=== PATIENT | male | born 1945 | race Caucasian/White ===

== ENCOUNTER 2019-09-18 11:07 | Outpatient (CLI) | payer MEDICARE, OTHER, SELFPAY ==
--- NOTE | 2019-09-18 | US_ITS ---
WS: [id number] ULTRASOUND ABDOMEN LIMITED CLINICAL INFORMATION: HISTORY OF ALCOHOL ABUSE COMPARISON: None. FINDINGS: Liver Size: Enlarged Craniocaudal length: 16.2 x 14.6 cm. Echogenicity: Normal. Surface nodularity: None. Mass (size and location): None. Bile ducts Intrahepatic ducts: Normal. Common bile duct diameter: 2.1 mm Gallbladder Normal. Gallstones: None. Gallbladder sludge: None. Gallbladder wall thickening: None. Pericholecystic fluid: None. Sonographic Garcia sign: Absent. Pancreas Normal as visualized. Right kidney: Normal. Hydronephrosis: None. Size: 11.1 cm x 4.9 cm x 5.3 cm. Abdominal aorta and IVC Visualized portions are normal. Ascites: None. US/US liver 46090 IMPRESSION: 1. Mild hepatomegaly. 2. Gallbladder is normal. Normal common bile duct. 3. No hydronephrosis in right kidney.
== END 2019-09-18 11:08 | disposition home or self-care (01) ==
LOC: RADOUTREAD 13:23
PROVIDERS: PCP Internal Medicine; Visit Provider Internal Medicine
DX: F10.11 Alcohol abuse, in remission (principal); R16.0 Hepatomegaly, not elsewhere classified
CPT/HCPCS: 76705

== ENCOUNTER 2019-09-25 08:45 | Outpatient (CLI) | payer MEDICARE, OTHER, SELFPAY ==
--- NOTE | 2019-09-25 09:06 | CT_ITS ---
WS: [id number] CT CHEST WITHOUT INTRAVENOUS CONTRAST HISTORY: PLEURAL THICKENING TECHNIQUE: Contiguous 5 mm axial imaging performed on the thorax. Coronal and sagittal reformats are submitted. All CT scans at [facility] use at least one of these dose optimization techniq ues: automated exposure control; mA and/or kV adjustment per patient size (includes targeted exams wh ere dose is matched to clinical indication); or iterative reconstruction. CONTRAST: None DLP: 838.95 mGycm COMPARISON: 09/14/2019 Lungs, pleura and central airway: Mild hyperinflation and chronic emphysema. 5 mm noncalcified nodule RIGHT upper lobe closely associated with the minor fissure. Pleural plaques are noted in the mid and lower LEFT thorax. In the mid thorax there is a lateral pleural plaque. Additional pleural plaque at the LEFT lung base. Heart and pericardium: Mild enlargement the cardiac chambers. No pericardial effusion. Mediastinum and aubrey: Small benign-appearing lymph nodes. Vessels: Mild atherosclerosis aorta with no aneurysm. Pulmonary artery size is slightly enlarged. Sca ttered coronary artery atherosclerotic plaques. Chest wall and lower neck: Low-attenuation nodule in the inferior RIGHT thyroid measures 2.4 cm. This nodule recently evaluated on 09/21/2019. Upper abdomen: Nonobstructing calcification mid RIGHT kidney. Moderate atherosclerosis suprarenal aor ta. Osseous structures: Thoracic spondylosis. CT/CT chest wo con [id number] IMPRESSION: 1. LEFT pleural plaques likely on the basis of prior asbestosis exposure. Alte rnatively prior chest trauma or hemothorax. 2. Noncalcified 5 mm nodule RIGHT upper lobe. Chest CT in 12 months recommende d. 3. Mild chronic emphysema and partially calcified thoracic aorta. 4. RIGHT thyroid nodule was recently described on 09/21/2019.
== END 2019-09-25 08:46 | disposition home or self-care (01) ==
LOC: RADWPI 08:50
PROVIDERS: PCP Internal Medicine; Visit Provider Internal Medicine
DX: J92.9 Pleural plaque without asbestos (principal); E04.1 Nontoxic single thyroid nodule; J43.9 Emphysema, unspecified; R91.1 Solitary pulmonary nodule
CPT/HCPCS: 71250

== ENCOUNTER 2020-03-06 09:30 | Outpatient (CLI) | payer MEDICARE, OTHER, SELFPAY ==
[2020-03-06 10:18] LABS: Basophils % 0.5 %; Eosinophils % 0.8 %; Hematocrit 33.1 % (42.0-52.0); Hemoglobin 10.9 g/dL (11.7-16.6); Lymphocytes # 1.8 10^3/uL (0.8-4.8); Lymphocytes % 46.1 %; Mean Corpuscular HGB Conc 32.9 g/dL (30.0-36.0); Mean Corpuscular Hemoglobin 34.6 pg (28.0-34.0); Mean Corpuscular Volume 105.1 fL (80-94); Monocytes # 0.4 10^3/uL (0.2-0.9); Monocytes % 10.6 %; Neutrophils # 1.66 10^3/uL (1.8-7.7); Neutrophils % 41.7 %; Nucleated Red Blood Cells % 0 %; Platelet Count 81 10^3/cmm (130-400); Red Blood Count 3.15 10^6/uL (4.1-5.3); Red Cell Distribution Width 14.1 % (12.1-15.1)
--- NOTE | 2020-03-06 12:22 | USCV_ITS ---
Erich Case Age: 74 Gender: M : 1945 Exam Date: 03/06/2020 12:51 Ordering Phys: Fransico Shankar MD Technologist: Nahun García [place] [facility] [place]: pain left leg. patient states doc wanted exam to see if patient could be off of his blood thinner meds PROCEDURES: Venous duplex imaging was performed in only the left lower extremity. The following venous structures were evaluated: common femoral vein, profunda vein, proximal portion of the greater saphenous vein, superficial femoral vein, and the popliteal vein. In addition, the posterior tibial and peroneal trunk were evaluated. Serial compression, augmentation maneuvers, and spectral Doppler flow evaluation were performed. FINDINGS: Patient had dvt in the left lower extremity in 2015. Today there appears to be non occluisve clot extending from the left common femoral to the peroneal veins. CONCLUSIONS Age indeterminate non occlusive DVT left lower extremity. Dr. Emily Sofia DO (Electronically Signed) Final Date: 06 March 2020 13:22 S
--- NOTE | 2020-03-06 13:36 | ONC CON_ITS ---
Dr. Shankar New Patient Note Patient: Erich Case Unit #: [id number]: 1945 Dicatated By: Fransico Shankar M.D.Date of Visit: Mar 06, 2020 Onc MED New Patient/Consult Referring Physician: Dr. Nithin Alejandro M.D. History of Present Illness: Mr. Erich Case, is a 74-year-old gentleman with history of right leg DVT diagnosed in 1997, as per patient he was treated with heparin for 5 days as inpatient followed by probably short course of Coumadin for few months. 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 Patient did fine until in 2016 when he felt left groin discomfort/pain and went to see his PMD, eventually left leg venous Doppler study was done which confirmed DVT as per patient from his groin to left knee and he was started on Eliquis 5 mg twice a day for a few weeks and then dose was reduced to 2.5 mg p.o. twice daily, and he is on currently. As per patient last week he had a routine lab work-up done and he was informed about anemia and his iron studies were normal but B12 was on the low side of normal so he was started on oral B12 supplement by his PMD. Patient denies any history of alcohol use for the last 30 years, before that he used to consume significant amount of alcohol. Denies any history of stomach surgery denies any peripheral numbness, denies any abdominal pain or fullness, denies any skin rash or itching, denies any jaundice, denies any melena or hematochezia denies any hemoptysis or hematemesis. Denies any started on new medication, Denies any night sweats, denies any peripheral lymphadenopathy or abdominal fullness, denies any recurrent fever Patient is complaining of about 30 pound weight loss in the last 6 months and also complaining of right thyroid nodule, his lab work-up done by PMD confirmed hyperthyroidism and now he is scheduled to see Dr. Coffman, ENT on coming Wednesday. Past Medical History: Mr. Thompson medical history consists of bph, history of dvt left lower extremity, hyperthyroidism, and thyroid nodule. Past Surgical History: Mr. Thompson surgical/procedural history consists of left hand surgery, sinus surgery, and vasectomy. Medications: Advair Diskus 2 Puff(s) (of 250-50 mcg/dose) Aerosol Powder, Breath Activated Inhalation daily, Eliquis 2 Tablet (of 2.5 mg) Oral daily, Tamsulosin HCl 1 Capsule (of 0.4 mg) Oral daily Allergies: Vicodin Social History: Mr. Case is single. He is a daily smoker who has smoked 0.5 packs/day for 3 years. He has no history of drinking. Family History: There is no documented family history. Review Of Symptoms: Constitutional - Appetite is good and weight is flucuating. No fever, night sweats, or hot flashes. Energy level is poor, ENMT - No sinus congestion/drainage. No mouth sores. No sore throat or difficulty swallowing, Hematologic/Lymphatic - Positive for easy bruising and bleeding, Respiratory - Positive for shortness of breath and cough. No pleuritic pain or hemoptysis, Cardiovascular - No angina pain. No palpitations, Gastrointestinal - No nausea or vomiting. No heartburn or acid reflux. No diarrhea or constipation. No blood in the stool or black stools, Genitourinary (M) - No dysuria or hematuria. No urinary frequency. No urgency or incontinence, Musculoskeletal - No joint or bone pain, Neurologic - No headache. Positive for dizziness. No numbness or tingling. No other focal neurologic symptoms, Psychiatric - Positive for anxiety. Vital Signs: Performed on Mar 06, 2020 10:56: 0, 22.03, 1.95 sq.m, 72 in, 99 %, 108 /min (HIGH), 16 /min, 100/60 mm(hg), 97.9 F (LOW), and 162.4 lbs (HIGH). Performance Status: 0 - Fully active, able to carry on all predisease activities without restrictions. (ECOG) Physical Examination: ENMT - No mouth sores, no thrush, no jaundice, No cervical, Axillary lymphadenopathy, Respiratory - Lungs are clear to auscultation, Cardiovascular - Regular rate and rhythm of heart, Abdomen - Soft, bowel sounds present, Extremities - No visible edema or rash, Old healing ecchymosis involving upper extremities. Lab/Imaging: Most recent lab results are not available for this patient. Impression: Macrocytic, hyperchromic anemia probably multifactorial including B12 deficiency, considering his age underlying myelodysplasia cannot be ruled out, lab work-up done in the PMDs office, on February 21, 2020 showed white blood count 3.2 hemoglobin 9.6 hematocrit 28.2 platelets 168,000 Iron 116, iron saturation 52, TIBC 222, ferritin 951, B12 286, SPEP no restricted protein seen TSH less than 0.06 , T4 2.7 History of BPH, on Flomax,PSA 6.1 Hyperthyroidism Right thyroid nodule, being evaluated by ENT Plan: Discussed with patient regarding his labs showed white blood count 4 hemoglobin 10.9 g compared to 9.6 g on February 20, 2019, since then patient is on oral B12 supplement., Hematocrit 33.1, MCV 105.1, platelet count 81,000 Clinically, patient is doing well with no new signs symptoms his follow-up labs shows improvement in his hemoglobin since he is on oral B12 supplement, his hemoglobin is 10.9 g compared to 9.6 g last week, will check his B12 level today, if low, may consider parenteral B12 supplements. Other possibility causing macrocytic anemia could be again considering his age, underlying myelodysplasia cannot be ruled out, as CBC done in his PMDs office shows mild leukopenia and in the medical record it mention patient has history of thrombocytopenia but today's labs shows white blood count in the normal range but on the lower side and thrombocytopenia with platelet count 81,000 compared to 168,000 previously. , We will review his peripheral blood smear to rule out any platelet clumping and as mentioned above check his B12 level and also consider repeating left leg venous Doppler study and check a D-dimer, if it shows resolution of DVT and no elevated D-dimers, may consider discontinue Eliquis especially with history of thrombocytopenia and now with progression on the other hand if it shows persistent DVT then patient will need long-term anticoagulation probably for life due to persistent left leg DVTs since diagnosed in 2016 while on anticoagulation. Patient was advised to avoid any kind of trauma and he will return to clinic in 1 week at that time will repeat his CBC if there is a further drop in his platelet count or persistent thrombocytopenia, will consider bone marrow evaluation, as per patient, he had CT scan of chest done in October 2019 which showed no evidence of splenomegaly As far as hyperthyroidism along with right thyroid nodules concern, as per patient PMD is referring him to specialist for further evaluation, he is scheduled see RICHARD Pascual on coming Wednesday. Signed By: Fransico Shankar M.D. <<Signature on File>>
[2020-03-06 13:53] LABS: LAB Peripheral Smear Sent for Review
[2020-03-06 15:50] LABS: Vitamin B12 260 pg/mL (232-1245)
== END 2020-03-06 09:31 | disposition home or self-care (01) ==
LOC: ONCMED 09:40
PROVIDERS: PCP Internal Medicine; Visit Provider Internal Medicine Hematology & Oncology
DX: D50.9 Iron deficiency anemia, unspecified (principal); D72.819 Decreased white blood cell count, unspecified; D61.818 Other pancytopenia; M79.605 Pain in left leg; N40.0 Benign prostatic hyperplasia without lower urinary tract symptoms; E05.90 Thyrotoxicosis, unspecified without thyrotoxic crisis or storm; E04.1 Nontoxic single thyroid nodule; Z86.718 Personal history of other venous thrombosis and embolism; Z79.01 Long term (current) use of anticoagulants
CPT/HCPCS: 36415; 80500; 82607; 85025; 85378; 93971; 99204

== ENCOUNTER 2020-03-11 06:17 | Outpatient (CLI) | payer MEDICARE, OTHER, SELFPAY ==
[2020-03-11 10:48] LABS: Basophils % 0.3 %; Eosinophils % 0.6 %; Hematocrit 30.8 % (42.0-52.0); Lymphocytes # 1.4 10^3/uL (0.8-4.8); Lymphocytes % 40.7 %; Mean Corpuscular HGB Conc 32.5 g/dL (30.0-36.0); Mean Corpuscular Hemoglobin 33.7 pg (28.0-34.0); Mean Corpuscular Volume 103.7 fL (80-94); Mean Platelet Volume 10.9 fL (7.4-10.4); Monocytes # 0.3 10^3/uL (0.2-0.9); Monocytes % 9.9 %; Neutrophils # 1.66 10^3/uL (1.8-7.7); Neutrophils % 48.2 %; Nucleated Red Blood Cells % 0 %; Platelet Count 51 10^3/cmm (130-400); Red Blood Count 2.97 10^6/uL (4.1-5.3); White Blood Count 3.4 10^3/uL (4.0-10.0)
[2020-03-12 11:56] LABS: Absolute Neutrophil 1.3 10^3/cmm (1.4-6.5); Anisocytosis 1+; Band Neutrophils Absolute 0.3 10^3/cmm (0.0-1.2); Eosinophils 2 %; Lymphocytes 47 %; Macrocytosis 1+; Monocytes Absolute 0.4 10^3/cmm (0.1-0.6); Platelet Estimate Decreased (Normal); Segmented Neutrophils 29 %; Total Cells Counted 100 (0-100)
[2020-03-12 11:57] LABS: LAB Peripheral Smear Sent for Review
== END 2020-03-11 06:18 | disposition home or self-care (01) ==
LOC: ONCMED 06:19
PROVIDERS: PCP Internal Medicine; Visit Provider Internal Medicine Hematology & Oncology
DX: D61.818 Other pancytopenia (principal); D50.9 Iron deficiency anemia, unspecified
CPT/HCPCS: 36415; 85007; 85025

== ENCOUNTER 2020-03-12 05:47 | Outpatient (CLI) | payer MEDICARE, OTHER, SELFPAY ==
[2020-03-12] MEDS: cyanocobalamin 1,000 mcg/mL SDV 1000 MCG SUBCUT (08:58)
--- NOTE | 2020-03-12 16:46 | ONC FU_ITS ---
Dr. Shankar follow up note Patient: Erich Case Unit #: [id number]: 1945 Dicatated By: Fransico Shankar M.D.Date of Visit:Mar 12, 2020 Onc Med Follow-up/Prog Note History of Present Illness: Mr. Erich Case, is a 74-year-old gentleman with history of right leg DVT diagnosed in 1997, as per patient he was treated with heparin for 5 days as inpatient followed by probably short course of Coumadin for few months. 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 Patient did fine until in 2016 when he felt left groin discomfort/pain and went to see his PMD, eventually left leg venous Doppler study was done which confirmed DVT as per patient from his groin to left knee and he was started on Eliquis 5 mg twice a day for a few weeks and then dose was reduced to 2.5 mg p.o. twice daily, and he is on currently. As per patient last week he had a routine lab work-up done and he was informed about anemia and his iron studies were normal but B12 was on the low side of normal so he was started on oral B12 supplement by his PMD. Patient denies any history of alcohol use for the last 30 years, before that he used to consume significant amount of alcohol. Denies any history of stomach surgery denies any peripheral numbness, denies any abdominal pain or fullness, denies any skin rash or itching, denies any jaundice, denies any melena or hematochezia denies any hemoptysis or hematemesis. Denies any started on new medication, Denies any night sweats, denies any peripheral lymphadenopathy or abdominal fullness, denies any recurrent fever Patient is complaining of about 30 pound weight loss in the last 6 months and also complaining of right thyroid nodule, his lab work-up done by PMD confirmed hyperthyroidism and Being evaluated by ENT Came for follow-up, denies any specific complaints, no fever chills, no nausea or vomiting, no diarrhea or constipation, no melena or hematochezia, no jaundice, no petechiae but old healing ecchymosis involving upper extremities. Taking oral B12 supplement without any problem Medications: Advair Diskus 2 Puff(s) (of 250-50 mcg/dose) Aerosol Powder, Breath Activated Inhalation daily, Eliquis 2 Tablet (of 2.5 mg) Oral daily, Tamsulosin HCl 1 Capsule (of 0.4 mg) Oral daily Allergies: Vicodin Review of Systems: Constitutional - Appetite is good and weight is flucuating. No fever, night sweats, or hot flashes. Energy level is poor, ENMT - No sinus congestion/drainage. No mouth sores. No sore throat or difficulty swallowing, Hematologic/Lymphatic - Positive for easy bruising and bleeding, Respiratory - Positive for shortness of breath and cough. No pleuritic pain or hemoptysis, Cardiovascular - No angina pain. No palpitations, Gastrointestinal - No nausea or vomiting. No heartburn or acid reflux. No diarrhea or constipation. No blood in the stool or black stools, Genitourinary (M) - No dysuria or hematuria. No urinary frequency. No urgency or incontinence, Musculoskeletal - No joint or bone pain, Neurologic - No headache. Positive for dizziness. No numbness or tingling. No other focal neurologic symptoms, Psychiatric - Positive for anxiety. Vital Signs: Performed on Mar 12, 2020 08:14 Height - 72.00 in Weight - 164.2 lbs (HIGH) BSA - 1.96 sq.m BMI - 22.27 Temperature - 98.0 F (LOW) Pulse - 106 /min (HIGH) Respiration - 16 /min BP - 105/62 mm(hg) O2 Sat - 98 % Pain - 1 Performance Status: 1 - No physically strenuous activity, but ambulatory and able to carry out light or sedentary work (e.g. office work, light house work). (ECOG) Physical Examination: ENMT - No mouth sores, no thrush, no jaundice, Respiratory - Lungs are clear to auscultation, Cardiovascular - Regular rate and rhythm of heart, Abdomen - Soft, bowel sounds present, Extremities - No visible edema. Lab/Imaging: Most recent lab results are not available for this patient. Impression: Pancytopenia including Macrocytic, hyperchromic anemia probably multifactorial including B12 deficiency, considering his age underlying myelodysplasia cannot be ruled out, lab work-up done in the PMDs office, on February 21, 2020 showed white blood count 3.2 hemoglobin 9.6 hematocrit 28.2 platelets 168,000 Iron 116, iron saturation 52, TIBC 222, ferritin 951, B12 286, SPEP no restricted protein seen TSH less than 0.06 , T4 2.7 History of BPH, on Flomax,PSA 6.1 Hyperthyroidism Right thyroid nodule, being evaluated by ENT History of left lower extremity DVT diagnosed in 2017, on Eliquis 2.5 mg twice a day, Repeat venous Doppler study of left lower extremity done on March 06, 2020 shows persistent nonocclusive DVT in left common femoral to the peroneal veins Plan: Discussed with patient regarding his labs white blood count 3.4 hemoglobin 10 hematocrit 30.8 platelets 51,000 absolute neutrophil count 1.66K B12 260 compared to 286 previously Clinically, patient is doing reasonably well but his follow-up labs shows progressive pancytopenia while on B12 supplement, there is no improvement in his repeat B12 level, it appears he may have malabsorption, will consider parenteral B12 1000 mcg IM weekly x4 loading dose followed by monthly and discontinue oral B12 supplements. And also consider peripheral blood flow cytometry to rule out myeloproliferative disorder. And also review peripheral blood smear with pathology And patient was advised to decrease Eliquis to 2.5 mg daily instead of 5 mg as his platelet count has dropped down to 51,000 and once platelet count improves, will increase Eliquis dose back to 5 mg daily. His follow-up venous Doppler study of left leg shows persistent nonocclusive DVT involving left lower extremity from left common femoral to peroneal veins., In that case, he may need long-term anticoagulationPatient was advised if there is any evidence of gross bleeding, he need to go to hospital immediately for evaluation Signed By: Fransico Shankar M.D. <<Signature on File>>
[2020-03-15 19:04] LABS: Leuk/Lymp. Number of Markers 22; Leukemia/Lymph. Clinical Infor MDS; Leukemia/Lymph. Spec Type WB; Leukemia/Lymph. Viability 78 %
== END 2020-03-12 05:48 | disposition home or self-care (01) ==
LOC: ONCMED 05:49
PROVIDERS: PCP Internal Medicine; Visit Provider Internal Medicine Hematology & Oncology
DX: D61.818 Other pancytopenia (principal); D50.9 Iron deficiency anemia, unspecified; I82.412 Acute embolism and thrombosis of left femoral vein; N40.0 Benign prostatic hyperplasia without lower urinary tract symptoms; E05.90 Thyrotoxicosis, unspecified without thyrotoxic crisis or storm; E04.1 Nontoxic single thyroid nodule; Z79.01 Long term (current) use of anticoagulants
CPT/HCPCS: 80500; 88184; 88185; 96372; 99214; J3420

== ENCOUNTER 2020-03-18 10:14 | Outpatient (CLI) | payer MEDICARE, OTHER, SELFPAY ==
--- NOTE | 2020-03-18 10:20 | NM_ITS ---
WS: [id number] NUCLEAR MEDICINE THYROID UPTAKE AND SCAN HISTORY: NONTOXIC SINGLE THYROID NODULE COMPARISON: Thyroid ultrasound 09/21/2019 Radionucleotide: 122 uCi Iodine-123 sodium iodide capsule. Oral ingestion. Imaging performed at 24 hours post ingestion of capsule. Marker placed over the chin and suprasternal notch. Large photopenic defect in the RIGHT lateral thyroid corresponds to the nodule recently described by ultrasound. Overall length of the thyroid lobe appears normal. No photopenic nodule in the LEFT thyro id. The LEFT thyroid is normal with no focal area of increased uptake. Thyroid uptake at 24 hours: 52%. (Normal uptake at 24 hours 10-30%). NM/NM thyroid uptake multi [id number] IMPRESSION: 1. Large photopenic defect in the RIGHT thyroid corresponds to the mass descri bed by ultrasound. No hyperfunctioning nodules are identified. 2. Normal size gland.
== END 2020-03-18 10:15 | disposition home or self-care (01) ==
PROVIDERS: PCP Internal Medicine; Visit Provider Specialist
DX: E04.1 Nontoxic single thyroid nodule (principal)
CPT/HCPCS: 78014; A9516

== ENCOUNTER 2020-03-19 11:46 | Outpatient (CLI) | payer MEDICARE, OTHER, SELFPAY ==
[2020-03-19 13:05] LABS: Basophils % 0.3 %; Eosinophils % 1.2 %; Hematocrit 25.4 % (42.0-52.0); Hemoglobin 8.7 g/dL (11.7-16.6); Lymphocytes % 58.2 %; Mean Corpuscular HGB Conc 34.3 g/dL (30.0-36.0); Mean Corpuscular Hemoglobin 35.1 pg (28.0-34.0); Mean Corpuscular Volume 102.4 fL (80-94); Mean Platelet Volume 11.5 fL (7.4-10.4); Monocytes # 0.2 10^3/uL (0.2-0.9); Monocytes % 6.6 %; Neutrophils # 1.12 10^3/uL (1.8-7.7); Neutrophils % 33.4 %; Nucleated Red Blood Cells % 0 %; Platelet Count 39 10^3/cmm (130-400); Red Blood Count 2.48 10^6/uL (4.1-5.3); Red Cell Distribution Width 13.6 % (12.1-15.1); White Blood Count 3.4 10^3/uL (4.0-10.0)
== END 2020-03-19 11:47 | disposition home or self-care (01) ==
PROVIDERS: PCP Internal Medicine; Visit Provider Internal Medicine Hematology & Oncology
DX: D61.818 Other pancytopenia (principal); D50.9 Iron deficiency anemia, unspecified
CPT/HCPCS: 85025

== ENCOUNTER 2020-03-20 05:53 | Outpatient (CLI) | payer MEDICARE, OTHER, SELFPAY ==
[2020-03-20] MEDS: cyanocobalamin 1,000 mcg/mL SDV 1000 MCG IM (11:55)
--- NOTE | 2020-03-28 18:59 | ONC FU_ITS ---
Darinel Cavazos Patient Note Patient: Erich Case Unit #: [id number]: 1945 Dictated By: Sheldon TorresDate of Visit: Mar 20, 2020 Onc MED Follow-Up/Prog Note Chief Complaint: Macrocytic anemia Thrombocytopenia History of Present Illness: Mr. Case is a 74-year-old gentleman with history of right leg DVT diagnosed in 1997, as per patient he was treated with heparin for 5 days as inpatient followed by probably short course of Coumadin for few months. 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 Mr Case reports that he did fine until in 2016 when he felt left groin discomfort/pain and went to see his PMD. Eventually a left leg venous Doppler study was done which confirmed DVT from the left groin to left knee . He was started on Eliquis 5 mg twice a day for a few weeks and then dose was reduced to 2.5 mg p.o. twice daily, and he is on this dose currently. Mr Case reports he had a routine lab work-up done in February 2020 and he was informed that he had anemia. His iron studies were normal, but the B12 was on the low side of normal. He was started on oral B12 supplement by his PMD. Patient denies any history of alcohol use for the last 30 years, before that he used to consume significant amount of alcohol. Denies any history of stomach surgery denies any peripheral numbness, denies any abdominal pain or fullness, denies any skin rash or itching, denies any jaundice, denies any melena or hematochezia denies any hemoptysis or hematemesis. Denies any started on new medication, Denies any night sweats, denies any peripheral lymphadenopathy or abdominal fullness, denies any recurrent fever. Mr Case was evaluated by Dr Shankar and at that time was complaining of about 30 pound weight loss in the last 6 months and also complaining of right thyroid nodule, his lab work-up done by PMD confirmed hyperthyroidism and he is currently being evaluated by ENT, Dr Coffman. Mr Case was last seen by Dr Shankar on 03/12/2020. His hemoglobin at that time was 10.0, white count was 3.4 and platelets were 51,000. His platelet count was 81,000 on March 06, 2020. Mr. Case reports that he was given radioactive iodine on Wednesday prior to this visit for a thyroid scan . He continues with the B12 weekly. It is noted that peripheral smear findings from his CBC on March 11, 2020 report leukopenia with neutropenia macrocytic anemia thrombocytopenia nucleated red blood cells identified no blast or blast equivalent cells identified the above findings of pancytopenia are concerning for myeloid disorder the findings have been refused discussed with Dr. Shankar and the specimen has been sent for flow cytometry . The cytometry is still pending. Mr. Case is tolerating the B12 well. He states he has follow-up with Dr. Gatica on April 05 to review the thyroid findings. He states he had a scan on Wednesday and has not heard anything of that. He denies any bruising or bleeding. He states he does have a bruising occasionally but states is no worse than what it has been. He denies any bleeding. He denies any fever or chills. He denies any cough or shortness of breath. He denies any new concerns today. We discussed his blood counts from today and he is very adamant that he does not want to do anything about his blood counts until he finds out what is going on with his thyroid with Dr. Gatica. He states he is very concerned because his father in the past has had issues with the doctors not talking each other and not communicating. This caused lots of problems as doctors started him on different medications that interfered with other medications from other providers and no one talk to each other. He is very adamant that he is not going to go through this. And he will deal with 1 thing at a time and right now his priority is his thyroid. I did relay to him that his thyroid is certainly important but his platelet count is 39,000 today which puts him at high risk for bleeding. Is also noted that his hemoglobin has dropped 8.7 today which is significant as it was 10.0 on March 11, 2020. Again he tells me he plans to work-up the thyroid and is not planning on donating his white count until he knows what is going on with the thyroid as that will affect everything . He denies any shortness of breath orthopnea. He denies any chest pain or palpitations. He denies any worsening fatigue. His ECOG is 0. Past Medical History: Bph History of dvt left lower extremity Hyperthyroidism Thyroid nodule Past Surgical History: Left hand surgery Sinus surgery Vasectomy Allergies: Vicodin Medications: Advair Diskus 2 Puff(s) (of 250-50 mcg/dose) Aerosol Powder, Breath Activated Inhalation daily Eliquis 1 Tablet (of 2.5 mg) Oral daily Tamsulosin HCl 1 Capsule (of 0.4 mg) Oral daily Family History: Social History: Mr. Case is single. He is a daily smoker who has smoked 1.0 pack/day for 3 years. He has no history of drinking. Review Of Symptoms: Constitutional Denies fevers, chills, night sweats, excessive fatigue or weight loss. Allergic/Immunologic No reactions. Eyes Denies significant visual changes. No diplopia. No amaurosis. ENMT Denies changes in hearing, sore throat, mouth sores, difficulty or changes in swallowing ability, and/or sinus drainage. Endocrine Problem with thyroid and seeing Dr Coffman for it . Hematologic/Lymphatic Denies worsening bruising and denies bleeding. The patient denies any tender or palpable lymph nodes. Respiratory Denies dyspnea on exertion, chest pain, cough or hemoptysis. Denies orthopnea. Cardiovascular Denies anginal chest pain, palpitations or orthopnea. Gastrointestinal Denies nausea, vomiting, diarrhea, GI bleeding, or constipation. Denies change in bowel habits and/or stool color, no heartburn or early satiety. Genitourinary (M) Denies hematuria, dysuria, increased frequency, urgency, hesitancy or incontinence. Musculoskeletal Denies joint pain, swelling or redness. No decreased range of motion. Integumentary Denies chronic rashes, inflammation, ulcerations or skin changes. Neurologic Denies headache, blurred vision, and no areas of focal weakness or numbness. Normal gait. No sensory problems. Psychiatric Denies insomnia, depression, randi or mood swings. Vital Signs: Performed on Mar 20, 2020 10:08 Height - 72.00 in Weight - 164.8 lbs (HIGH) BSA - 1.96 sq.m BMI - 22.35 Temperature - 97.4 F (LOW) Pulse - 110 /min (HIGH) Respiration - 17 /min BP - 164/63 mm(hg) (HIGH) O2 Sat - 99 % Pain - 0,0 - Fully active, able to carry on all predisease activities without restrictions. (ECOG) Physical Examination: Constitutional Alert, oriented, no acute distress. Skin pink, warm and dry. Head Normocephalic; atraumatic. Eyes Conjunctivae and sclerae are clear and without icterus. Pupils are reactive and equal. Respiratory Lungs are clear to auscultation without rhonchi or wheezing. Cardiovascular Regular rate and rhythm of heart without murmurs,clicks, gallops or rubs. Extremities No visible deformities, no cyanosis, clubbing or edema. Musculoskeletal No tenderness or swelling, normal range of motion without obvious weakness. Integumentary No rashes or lesions. Neurologic No sensory or motor deficits, normal cerebellar function, normal gait. Psychiatric Alert and oriented times three. Coherent speech. Verbalizes understanding of our discussions today. Laboratory:see flow sheet and below Impression: Pancytopenia including Macrocytic, hyperchromic anemia probably multifactorial including B12 deficiency, considering his age underlying myelodysplasia cannot be ruled out, lab work-up done in the PMDs office, on February 21, 2020 showed white blood count 3.2 hemoglobin 9.6 hematocrit 28.2 platelets 168,000 Iron 116, iron saturation 52, TIBC 222, ferritin 951, B12 286, SPEP no restricted protein seen TSH less than 0.06 , T4 2.7 History of BPH, on Flomax,PSA 6.1 Hyperthyroidism Right thyroid nodule, being evaluated by ENT-Dr Coffman History of left lower extremity DVT diagnosed in 2017, on Eliquis 2.5 mg twice a day, Repeat venous Doppler study of left lower extremity done on March 06, 2020 shows persistent nonocclusive DVT in left common femoral to the peroneal veins Plan: PROBLEMS ADDRESSED TODAY 1. SEVERE anemia/thrombocytopenia A. Mr. Evie block from March 19, 2020 reviewed in detail and discussed with him and a copy of the labs were given to him. WBC 3.4, hemoglobin 8.7, platelets 39,000 ANC is 1120. There is no chemistry ordered for today. B. I discussed with him the fact that his platelet count is 39,000 and his hemoglobin is 8.7 both of which are significantly low. I have asked that he recheck his blood count early next week in the event that he may need blood or platelets. He states he is not planning on doing any kind of treatment or any further testing until he knows what is going on with his thyroid. I did inform him that a bone marrow biopsy may need to be done in the future to determine what is going on for his blood counts. He again is adamant that he will not do anything until he knows what is going on with his thyroid. I did discuss Mr Case labs with Dr. Shankar at the time of his visit with me today. Dr. Shankar requested we monitor him closely but states he feels that the B12 deficiency should turn around and hopefully his bone marrow respond at that time. If not he would recommend doing a bone marrow aspiration biopsy. Relayed all this information to Mr. Case and again he was very adamant that he will have his thyroid work-up results before he does anything else. C. I have asked him to recheck his labs weekly and he is agreeable to do this but states he just does not want it done on Wednesdays. He will be due for weekly B12 and plans to return for those anyway and states that he will does have his labs drawn while he is here. D. At his insistence I have requested a follow-up with Dr. Shankar in 3 weeks at which time he will be due for B12. Of also asked for a CBC and typenex in the event that he needs transfusion services or platelet pheresis. E. I have again reminded and rediscussed with Mr. Case the fact that his blood counts are so low if he has any new problems arise such as shortness of breath or bleeding or excessive bruising he is requested to call us so that we can check his blood counts and proceed accordingly. He tells me that he has been on blood thinners in the past and has never had any problems bleeding and still does not today.. F. I have asked Mr. Case to call us if he has any questions or concerns; we will be glad to see him prior to 3 weeks if he will call or come in. We will call him with his lab work results weekly. 2. Persistent DVT A. We did discuss his Eliquis dosing of 2.5 mg daily. He will continue this for now, but may need to stop in the future if his platelets continue to drop. His 03/06/2020 venous Doppler study of left leg shows persistent nonocclusive DVT involving left lower extremity from left common femoral to peroneal veins. Per Dr Shankar's 03/11/2020 visit note, In that case, he may need long-term anticoagulation . Signed By: Sheldon Torres-, AOCNP Fransico Shankar MD <<Signature on File>>
== END 2020-03-20 05:54 | disposition home or self-care (01) ==
LOC: ONCMED 05:55
PROVIDERS: PCP Internal Medicine; Visit Provider Nurse Practitioner
DX: D50.9 Iron deficiency anemia, unspecified (principal); D69.6 Thrombocytopenia, unspecified; I82.412 Acute embolism and thrombosis of left femoral vein; D61.818 Other pancytopenia; E53.8 Deficiency of other specified B group vitamins; Z79.01 Long term (current) use of anticoagulants
CPT/HCPCS: 96372; 99214; J3420

== ENCOUNTER 2020-03-26 06:09 | Outpatient (CLI) | payer MEDICARE, OTHER, SELFPAY ==
[2020-03-26] MEDS: cyanocobalamin 1,000 mcg/mL SDV 1000 MCG IM (13:27)
[2020-03-26 13:54] LABS: Eosinophils % 0.7 %; Hematocrit 23.1 % (42.0-52.0); Lymphocytes # 1.5 10^3/uL (0.8-4.8); Lymphocytes % 50.5 %; Mean Corpuscular HGB Conc 34.6 g/dL (30.0-36.0); Mean Corpuscular Hemoglobin 34.6 pg (28.0-34.0); Mean Platelet Volume 11.6 fL (7.4-10.4); Monocytes # 0.2 10^3/uL (0.2-0.9); Monocytes % 5.8 %; Neutrophils # 1.24 10^3/uL (1.8-7.7); Neutrophils % 42.7 %; Nucleated Red Blood Cells % 0 %; Platelet Count 57 10^3/cmm (130-400); Red Blood Count 2.31 10^6/uL (4.1-5.3); Red Cell Distribution Width 13.4 % (12.1-15.1); White Blood Count 2.9 10^3/uL (4.0-10.0)
[2020-03-26 14:09] LABS: Alanine Aminotransferase 30 U/L (0-41); Albumin Level 3.9 g/dL (3.5-5.2); Alkaline Phosphatase 86 IU/L (40-130); Anion Gap 13.4 (5-19); Aspartate Amino Transferase 18 U/L (0-40); Blood Urea Nitrogen 14 mg/dL (8-23); Calcium 9.3 mg/dL (8.5-10.5); Carbon Dioxide 26 mmol/L (22-29); Chloride 103 mmol/L (98-107); Globulin 3.1 g/dL (1.3-4.6); Glucose 95 mg/dL (65-115); Osmolality Calculated 286 mOsm/kg (285-295); Potassium 4.4 mmol/L (3.5-5.1); Sodium 138 mmol/L (136-145); Total Bilirubin 0.6 mg/dL (0.15-1.2)
== END 2020-03-26 06:10 | disposition home or self-care (01) ==
LOC: ONCMED 06:11
PROVIDERS: Nurse Practitioner; PCP Internal Medicine; Visit Provider Internal Medicine Hematology & Oncology
DX: D61.818 Other pancytopenia (principal); D51.9 Vitamin B12 deficiency anemia, unspecified; D50.9 Iron deficiency anemia, unspecified
CPT/HCPCS: 80053; 85025; 96372; J3420

== ENCOUNTER 2020-04-08 05:59 | Outpatient (CLI) | payer MEDICARE, OTHER, SELFPAY ==
[2020-04-08 14:14] LABS: Eosinophils % 0.4 %; Lymphocytes # 1.7 10^3/uL (0.8-4.8); Lymphocytes % 68.8 %; Mean Corpuscular HGB Conc 33.5 g/dL (30.0-36.0); Mean Corpuscular Hemoglobin 34.4 pg (28.0-34.0); Mean Corpuscular Volume 102.5 fL (80-94); Monocytes # 0.2 10^3/uL (0.2-0.9); Monocytes % 8.8 %; Nucleated Red Blood Cells % 0 %; Platelet Count 50 10^3/cmm (130-400); Red Blood Count 1.63 10^6/uL (4.1-5.3); Red Cell Distribution Width 13.5 % (12.1-15.1); White Blood Count 2.5 10^3/uL (4.0-10.0)
[2020-04-08 14:25] LABS: Hematocrit 16.7 % (42.0-52.0); Hemoglobin 5.6 g/dL (11.7-16.6)
[2020-04-08 14:26] LABS: Neutrophils # 0.55 10^3/uL (1.8-7.7)
== END 2020-04-08 06:00 | disposition home or self-care (01) ==
LOC: ONCMED 06:01
PROVIDERS: PCP Internal Medicine; Visit Provider Internal Medicine Hematology & Oncology
DX: D61.818 Other pancytopenia (principal); D50.9 Iron deficiency anemia, unspecified
CPT/HCPCS: 85025; 86850; 86900; 86920

== ENCOUNTER 2020-04-09 05:35 | Outpatient (CLI) | payer MEDICARE, OTHER, SELFPAY ==
[2020-04-09] MEDS: sodium chloride 0.9% 250 ML 999 ML IV (09:45)
[2020-04-09] MEDS: acetaminophen 325 mg Tablet 650 MG PO (10:00)
[2020-04-09] MEDS: diphenhydrAMINE 25 mg Capsule PO (10:00)
[2020-04-09 10:30] VITALS: BP 96/60; PULSE 74; RESP 18; TEMP 37.3; O2SAT 96
[2020-04-09 10:45] VITALS: BP 97/61; PULSE 74; RESP 18; TEMP 37.3; O2SAT 96
[2020-04-09] MEDS: FUROsemide 10 mg/mL SDV 2mL 20 MG IV (11:55)
--- NOTE | 2020-04-09 16:51 | ONC FU_ITS ---
Dr. Shankar follow up note Patient: Erich Case Unit #: [id number]: 1945 Dicatated By: Fransico Shankar M.D.Date of Visit:Apr 09, 2020 Onc Med Follow-up/Prog Note History of Present Illness: Mr. Case is a 74-year-old gentleman with history of right leg DVT diagnosed in 1997, as per patient he was treated with heparin for 5 days as inpatient followed by probably short course of Coumadin for few months. 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 Mr Case reports that he did fine until in 2016 when he felt left groin discomfort/pain and went to see his PMD. Eventually a left leg venous Doppler study was done which confirmed DVT from the left groin to left knee . He was started on Eliquis 5 mg twice a day for a few weeks and then dose was reduced to 2.5 mg p.o. twice daily, and he is on this dose currently. Mr Case reports he had a routine lab work-up done in February 2020 and he was informed that he had anemia. His iron studies were normal, but the B12 was on the low side of normal. He was started on oral B12 supplement by his PMD. Patient denies any history of alcohol use for the last 30 years, before that he used to consume significant amount of alcohol. Denies any history of stomach surgery denies any peripheral numbness, denies any abdominal pain or fullness, denies any skin rash or itching, denies any jaundice, denies any melena or hematochezia denies any hemoptysis or hematemesis. Denies any started on new medication, Denies any night sweats, denies any peripheral lymphadenopathy or abdominal fullness, denies any recurrent fever. Mr Case was evaluated by Dr Shankar and at that time was complaining of about 30 pound weight loss in the last 6 months and also complaining of right thyroid nodule, his lab work-up done by PMD confirmed hyperthyroidism and he is currently being evaluated by ENT, Dr Coffman. Mr Case was last seen by on 03/12/2020. His hemoglobin at that time was 10.0, white count was 3.4 and platelets were 51,000. His platelet count was 81,000 on March 06, 2020. Mr. Case reports that he was given radioactive iodine on Wednesday prior to this visit for a thyroid scan . He continues with the B12 weekly. It is noted that peripheral smear findings from his CBC on March 11, 2020 report leukopenia with neutropenia macrocytic anemia thrombocytopenia nucleated red blood cells identified no blast or blast equivalent cells identified the above findings of pancytopenia are concerning for myeloid disorder so, specimen has been sent for flow cytometry .Which was done on March 11, 2020 and it shows no abnormality is tolerating the B12 well He states he has follow-up with Dr. Gatica to review the thyroid findings. Came for follow-up, complaining of generalized weakness and fatigue. No melena or hematochezia no nausea or vomiting no diarrhea constipation, no jaundice, no hematuria. No chest pain, no shortness of breath at rest but dyspnea and palpitation on exertion. Medications: Advair Diskus 2 Puff(s) (of 250-50 mcg/dose) Aerosol Powder, Breath Activated Inhalation daily, Eliquis 1 Tablet (of 2.5 mg) Oral daily, Tamsulosin HCl 1 Capsule (of 0.4 mg) Oral daily Allergies: Vicodin Review of Systems: Review of Systems is not available for this patient. Vital Signs: Performed on Apr 09, 2020 08:16 Height - 72.00 in Weight - 166 lbs (HIGH) BSA - 1.97 sq.m BMI - 22.51 Temperature - 98.3 F (LOW) Pulse - 100 /min Respiration - 20 /min BP - 90/56 mm(hg) O2 Sat - 98 % Pain - 0 Fatigue - 8 Performance Status: 3 - Capable of only limited self-care, confined to bed or chair more than 50% of waking hours. (ECOG) Physical Examination: ENMT - No mouth sores, no thrush, no jaundice, Respiratory - Lungs are clear to auscultation, Cardiovascular - Regular rate and rhythm of heart, Abdomen - Soft, bowel sounds present, Extremities - No visible edema. Lab/Imaging: Test performed on Apr 08, 2020 13:48 WBC 2.5 10 3/uL RBC 1.63 10 6/uL HGB 5.6 g/dL HCT 16.7 % MCV 102.5 fL MCH 34.4 pg MCHC 33.5 g/dL RDW 13.5 % Platelet Count 50 10 3/cmm MPV 11.0 fL Neutrophils 0.55 10 3/uL Lymphocytes 1.7 10 3/uL Monocytes 0.2 10 3/uL Eosinophils 0.0 10 3/uL Basophils 0.0 10 3/uL Neutrophil % 22.0 % Lymphocyte % 68.8 % Monocyte % 8.8 % Eosinophil % 0.4 % Basophils % 0.0 % NRBC % 0 % Test performed on Mar 12, 2020 08:35 Platelet Estimate ADDED TO 03/11 CBC Test performed on Mar 11, 2020 10:35 Anisocytosis 1+ Macrocytosis 1+ Manual Segs Abs 1.0 10/cmm Manual Bands Abs 0.3 10 3/cmm Manual Neutrophils Abs 1.3 10 3/cmm Manual Monocytes Abs 0.4 10 3/cmm Manual Eosinophils Abs 0.0 10 3/cmm Manual Basophils Abs 0.0 10 3/cmm Leukemia/Lymphoma Interp MDS Test performed on Mar 06, 2020 09:55 Vitamin B12 260 pg/mL Impression: Pancytopenia including Macrocytic, hyperchromic anemia probably multifactorial including B12 deficiency, considering his age underlying myelodysplasia cannot be ruled out, lab work-up done in the PMDs office, on February 21, 2020 showed white blood count 3.2 hemoglobin 9.6 hematocrit 28.2 platelets 168,000 Iron 116, iron saturation 52, TIBC 222, ferritin 951, B12 286, SPEP no restricted protein seen TSH less than 0.06 , T4 2.7 History of BPH, on Flomax,PSA 6.1 Hyperthyroidism Right thyroid nodule, being evaluated by ENT-Dr Coffman History of left lower extremity DVT diagnosed in 2017, on Eliquis 2.5 mg twice a day, Repeat venous Doppler study of left lower extremity done on March 06, 2020 shows persistent nonocclusive DVT in left common femoral to the peroneal veins Plan: Patient regarding his labs white blood count 2.5 hemoglobin 5.6 hematocrit 16.7 platelets 50,000 and antibody screen, negative but anti-D positive, whole blood flow cytometry for MDS negative Clinically, patient is doing reasonably well but now symptomatic due to progressive severe anemia no evidence of gross bleeding no jaundice but his anemia work-up shows negative for antibody screen but positive for anti-D, which could be the reason for autoimmune hemolytic anemia, will consider prednisone 100 mg p.o. daily and then he will return to clinic in 1 week with CBC and CMP, LDH and also given 2 units of packed RBCs for severe symptomatic anemia All the side effect possible benefits associated with high-dose prednisone including hyperglycemia, insomnia, restlessness, mouth sores, thrush, we will tried nystatin 5 cc p.o. swish and spit after each prednisone dose to prevent oral thrush Because of persistent pancytopenia bone marrow evaluation is under consideration. Patient was advised in case he has any evidence of gross bleeding or jaundice need to call us Signed By: Fransico Shankar M.D. <<Signature on File>>
[2020-04-10 16:20] LABS: Coronavirus Test Green County Not Detected
== END 2020-04-09 05:36 | disposition home or self-care (01) ==
LOC: ONCMED 05:40
PROVIDERS: PCP Internal Medicine; Visit Provider Internal Medicine Hematology & Oncology
DX: D61.818 Other pancytopenia (principal); D50.9 Iron deficiency anemia, unspecified; E53.8 Deficiency of other specified B group vitamins; Z20.822 Contact with and (suspected) exposure to COVID-19; N40.0 Benign prostatic hyperplasia without lower urinary tract symptoms; E05.90 Thyrotoxicosis, unspecified without thyrotoxic crisis or storm; E04.1 Nontoxic single thyroid nodule; I82.412 Acute embolism and thrombosis of left femoral vein; Z79.01 Long term (current) use of anticoagulants; Z79.52 Long term (current) use of systemic steroids
CPT/HCPCS: 36415; 36430; 86850; 86900; 86920; 87635; 99215; J1940; J7050; P9016

== ENCOUNTER 2020-04-11 07:41 | Outpatient (CLI) | payer MEDICARE, OTHER, SELFPAY ==
[2020-04-11 08:27] LABS: Hematocrit 23.1 % (42.0-52.0); Hemoglobin 7.9 g/dL (11.7-16.6); Lymphocytes # 1.3 10^3/uL (0.8-4.8); Lymphocytes % 45.2 %; Mean Corpuscular HGB Conc 34.2 g/dL (30.0-36.0); Mean Corpuscular Hemoglobin 32.5 pg (28.0-34.0); Mean Corpuscular Volume 95.1 fL (80-94); Mean Platelet Volume 10.4 fL (7.4-10.4); Monocytes # 0.4 10^3/uL (0.2-0.9); Neutrophils # 1.21 10^3/uL (1.8-7.7); Neutrophils % 41.5 %; Nucleated Red Blood Cells % 0 %; Platelet Count 45 10^3/cmm (130-400); Red Blood Count 2.43 10^6/uL (4.1-5.3); White Blood Count 2.9 10^3/uL (4.0-10.0)
== END 2020-04-11 07:42 | disposition home or self-care (01) ==
LOC: ONCMED 07:45
PROVIDERS: PCP Internal Medicine; Visit Provider Internal Medicine Hematology & Oncology
DX: D64.9 Anemia, unspecified (principal)
CPT/HCPCS: 36415; 85025

== ENCOUNTER 2020-04-11 09:39 | Day surgery (SDC) | payer MEDICARE, OTHER, SELFPAY ==
[2020-04-10 12:34] VITALS: BMI 22.4
[2020-04-11 10:31] VITALS: BP 158/58; PULSE 86; RESP 20; TEMP 36.6; O2SAT 100
[2020-04-11] MEDS: sodium chloride 0.9% 1,000 ML 30 ML IV (10:47)
--- NOTE | 2020-04-11 11:21 | ANES.PREANE2 ---
Pre-Anesthetic Assessment Pre-Anesthetic Assessment: Height/Weight: Height 1.83 m Weight 74.843 kg Temp Pulse Resp BP Pulse Ox 97.8 F 86 20 H 158/58 100 04/11/20 10:31 04/11/20 10:31 04/11/20 10:31 04/11/20 10:31 04/11/20 10:31 Proposed Procedure: Operation Date: 04/11/20 11:30 Proposed Procedures p Bone Marrow Biopsy With Aspiration 47348 D61.818 D50.9(Not Applicable) - Fransico Shankar MD Was Beta Bailey taken within 24 hours: N/A Last intake: Intake Last Liquid Date 04/10/20 Last Liquid Time 18:00 Last Solid Date 04/10/20 Last Solid Time 18:00 Social: Social History: No alcohol and No tobacco Exam: Pre-Anes Outpt Exam: alert, oriented x 3, clear to auscultation bilaterally and regular rate & rhythm Airway: Submandibular: WNL Cervical ROM: WNL MP: 2 CV/HEM: CV/HEM: Anemia and DVT Metabolic: Comments: Chronic steroids Anesthetic Plan: ASA status: 3 Anesthesia: MAC Risk of > 500 ml blood loss (7ml/kg in children): No Meds/Allergies Current Medications: Current Medications Generic Name Dose Route Start Last Admin Trade Name Freq PRN Reason Stop Dose Admin Sodium Chloride 1,000 mls @ 30 ml s/hr 04/11/20 10:45 04/11/20 10:47 Sodium Chloride 0.9% IV 04/12/20 10:44 30 mls/hr .Q24H ARGELIA Administration Data Anesthesia Cardiac Studies: No Data to Display
[2020-04-11 12:00] VITALS: BP 130/92; PULSE 85; RESP 18; TEMP 36.8; O2SAT 100
--- NOTE | 2020-04-11 12:04 | PM.BMB ---
Bone Marrow Biopsy Bone Marrow Biopsy: I was consulted by [] office regarding bone marrow biopsy on [Erich Case]. Briefly, the patient is a 74 year old [male] with [pancytopenia]. In the Outpatient Services Department, with nursing staff and laboratory technologists in attendance, the procedure was discussed with the patient. Appropriate consent form had been signed. Appropriate alternatives, benefits and risks of procedure were discussed with the patient and he was pre-operatively assessed with a history and physical by myself and cleared for the biopsy procedure. The patient did request IV sedation and that was provided by the Anesthesia Department. Under aseptic condition right posterior iliac area was cleaned and prepped, local anesthesia was given, about 15 cc of bone marrow aspirate and core biopsy was obtained, hemostasis was obtained, patient tolerated procedure well, specimen was sent for routine histopathology and flow cytometry/cytogenetics, and leukemia/lymphoma panel. Postprocedure nursing instruction were given Thank you for allowing me to participate in this patient's care and diagnosis. Coding Level of Care Code Acute Litigation Partner for Светлана James
[2020-04-11 12:20] VITALS: BP 99/62; PULSE 74; RESP 16; O2SAT 100
--- NOTE | 2020-04-11 12:43 | PC.NURSE ---
Pressure dressing observed 30 mins after procedure ended. Dry and intact, no signs of blood.
--- NOTE | 2020-04-11 12:48 | ANE.PACU2 ---
Inpatient post-anesthesia follow up: Airway intact: Yes Vital signs: Temperature 98.2 F Pulse Rate 74 Respiratory Rate 16 Blood Pressure 99/62 Pulse Oximetry 100 Oxygen Delivery Me thod Room Air Oxygen Flow Rate Fraction of Inspir ed Oxygen Hydration adequate: Yes Nausea and vomiting: No Pain level: 1 Mental status: Baseline
[2020-04-15 12:33] LABS: Miscellaneous Test See Scanned Lab Rpt
[2020-04-17 10:03] LABS: Miscellaneous Test See Scanned Lab Rpt
== END 2020-04-11 12:48 | disposition home or self-care (01) ==
PROVIDERS: PCP Internal Medicine; Visit Provider Internal Medicine Hematology & Oncology
PROC: (CPT 38221; principal; 2020-04-11 11:30)
DX: D61.818 Other pancytopenia (principal); D70.9 Neutropenia, unspecified; D69.6 Thrombocytopenia, unspecified; Z86.718 Personal history of other venous thrombosis and embolism
CPT/HCPCS: 38222; 88237; 88264; 88305; 88367; 88374; J2704; J7030

== ENCOUNTER 2020-04-16 06:06 | Outpatient (CLI) | payer MEDICARE, OTHER, SELFPAY ==
[2020-04-16 10:54] LABS: Eosinophils % 0.2 %; Hematocrit 22.3 % (42.0-52.0); Hemoglobin 7.3 g/dL (11.7-16.6); Lymphocytes # 2.9 10^3/uL (0.8-4.8); Lymphocytes % 58.7 %; Mean Corpuscular HGB Conc 32.7 g/dL (30.0-36.0); Mean Corpuscular Hemoglobin 32.2 pg (28.0-34.0); Mean Corpuscular Volume 98.2 fL (80-94); Mean Platelet Volume 10.8 fL (7.4-10.4); Monocytes # 0.4 10^3/uL (0.2-0.9); Monocytes % 8.8 %; Neutrophils % 31.9 %; Nucleated Red Blood Cells % 0 %; Platelet Count 52 10^3/cmm (130-400); Red Blood Count 2.27 10^6/uL (4.1-5.3); Red Cell Distribution Width 16.4 % (12.1-15.1)
== END 2020-04-16 06:07 | disposition home or self-care (01) ==
LOC: ONCMED 06:08
PROVIDERS: PCP Internal Medicine; Visit Provider Internal Medicine Hematology & Oncology
DX: D61.818 Other pancytopenia (principal); D53.9 Nutritional anemia, unspecified
CPT/HCPCS: 36415; 85025

== ENCOUNTER 2020-04-18 05:40 | Outpatient (CLI) | payer MEDICARE, OTHER, SELFPAY ==
--- NOTE | 2020-04-18 17:16 | ONC FU_ITS ---
Dr. Shankar follow up note Patient: Erich Case Unit #: [id number]: 1945 Dicatated By: Fransico Shankar M.D.Date of Visit:Apr 18, 2020 Onc Med Follow-up/Prog Note History of Present Illness: Mr. Case is a 74-year-old gentleman with history of right leg DVT diagnosed in 1997, as per patient he was treated with heparin for 5 days as inpatient followed by probably short course of Coumadin for few months. 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 Mr Case reports that he did fine until in 2016 when he felt left groin discomfort/pain and went to see his PMD. Eventually a left leg venous Doppler study was done which confirmed DVT from the left groin to left knee . He was started on Eliquis 5 mg twice a day for a few weeks and then dose was reduced to 2.5 mg p.o. twice daily, and he is on this dose currently. Mr Case reports he had a routine lab work-up done in February 2020 and he was informed that he had anemia. His iron studies were normal, but the B12 was on the low side of normal. He was started on oral B12 supplement by his PMD. Patient denies any history of alcohol use for the last 30 years, before that he used to consume significant amount of alcohol. Denies any history of stomach surgery denies any peripheral numbness, denies any abdominal pain or fullness, denies any skin rash or itching, denies any jaundice, denies any melena or hematochezia denies any hemoptysis or hematemesis. Denies any started on new medication, Denies any night sweats, denies any peripheral lymphadenopathy or abdominal fullness, denies any recurrent fever. complaining of about 30 pound weight loss in the last 6 months and also complaining of right thyroid nodule, his lab work-up done by PMD confirmed hyperthyroidism and he is currently being evaluated by ENT, Dr Coffman.And endocrinology Mr Case was last seen by on 03/12/2020. His hemoglobin at that time was 10.0, white count was 3.4 and platelets were 51,000. His platelet count was 81,000 on March 06, 2020. Mr. Case reports that he was given radioactive iodine on Wednesday prior to this visit for a thyroid scan . He continues with the B12 weekly. It is noted that peripheral smear findings from his CBC on March 11, 2020 report leukopenia with neutropenia macrocytic anemia thrombocytopenia nucleated red blood cells identified no blast or blast equivalent cells identified the above findings of pancytopenia are concerning for myeloid disorder so, specimen has been sent for flow cytometry .Which was done on March 11, 2020 and it shows no abnormality is tolerating the B12 well, His anemia work-up was inconclusive including Robson test were negative but positive for anti-D antibody, patient was given trial of high-dose steroids, without any improvement subsequently patient underwent bone marrow on April 11, 2020 which showed normocellular bone marrow no overt dyspoietic or megaloblastic changes seen no evidence of bone marrow infiltrative disorder iron stores increased, flow cytometry shows no aberrant myeloid or lymphoid population Came for follow-up, denies any specific complaints except generalized weakness and fatigue, no nausea or vomiting, no diarrhea or constipation, no melena or hematochezia no hemoptysis or hematemesis, no jaundice patient had abdominal sonogram done on September 18, 2019 shows liver was enlarged 16.2 x 14.6 cm with normal echogenicity, no comments on the spleen and patient is not aware of large liver. Medications: Advair Diskus 2 Puff(s) (of 250-50 mcg/dose) Aerosol Powder, Breath Activated Inhalation daily, Eliquis 1 Tablet (of 2.5 mg) Oral daily, Tamsulosin HCl 1 Capsule (of 0.4 mg) Oral daily Allergies: Vicodin Review of Systems: Review of Systems is not available for this patient. Vital Signs: Performed on Apr 18, 2020 09:06 Height - 72.00 in Weight - 163.4 lbs (LOW) BSA - 1.96 sq.m BMI - 22.16 Temperature - 99.0 F (HIGH) Pulse - 86 /min Respiration - 18 /min BP - 157/56 mm(hg) (HIGH) O2 Sat - 98 % Pain - 0 Fatigue - 3 Performance Status: 1 - No physically strenuous activity, but ambulatory and able to carry out light or sedentary work (e.g. office work, light house work). (ECOG) Physical Examination: ENMT - No mouth sores, no thrush, no jaundice, Respiratory - Lungs are clear to auscultation, Cardiovascular - Regular rate and rhythm of heart, Abdomen - Soft, bowel sounds present, Extremities - No visible edema. Lab/Imaging: Test performed on Apr 08, 2020 13:48 WBC 2.5 10 3/uL RBC 1.63 10 6/uL HGB 5.6 g/dL HCT 16.7 % MCV 102.5 fL MCH 34.4 pg MCHC 33.5 g/dL RDW 13.5 % Platelet Count 50 10 3/cmm MPV 11.0 fL Neutrophils 0.55 10 3/uL Lymphocytes 1.7 10 3/uL Monocytes 0.2 10 3/uL Eosinophils 0.0 10 3/uL Basophils 0.0 10 3/uL Neutrophil % 22.0 % Lymphocyte % 68.8 % Monocyte % 8.8 % Eosinophil % 0.4 % Basophils % 0.0 % NRBC % 0 % Test performed on Mar 12, 2020 08:35 Platelet Estimate ADDED TO 03/11 CBC Test performed on Mar 11, 2020 10:35 Anisocytosis 1+ Macrocytosis 1+ Manual Segs Abs 1.0 10/cmm Manual Bands Abs 0.3 10 3/cmm Manual Neutrophils Abs 1.3 10 3/cmm Manual Monocytes Abs 0.4 10 3/cmm Manual Eosinophils Abs 0.0 10 3/cmm Manual Basophils Abs 0.0 10 3/cmm Leukemia/Lymphoma Interp MDS Test performed on Mar 06, 2020 09:55 Vitamin B12 260 pg/mL Impression: Pancytopenia including Macrocytic, hyperchromic anemia probably multifactorial including B12 deficiency, considering his age underlying myelodysplasia cannot be ruled out, lab work-up done in the PMDs office, on February 21, 2020 showed white blood count 3.2 hemoglobin 9.6 hematocrit 28.2 platelets 168,000 Iron 116, iron saturation 52, TIBC 222, ferritin 951, B12 286, SPEP no restricted protein seen TSH less than 0.06 , T4 2.7, Robson test direct and indirect negative but positive for anti-D antibodies, Was given high-dose steroids for 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 No evidence of bone marrow infiltrative disorder. Iron stores increased. No evidence of reticulin fibrosis. Flow cytometry was unremarkable. As per pathology FISH for MDS was negative Plan: Discussed with patient regarding his labs white blood cell 5000 compared to 2.9 on April 11, 2020 hemoglobin 7.3 g compared to 7.9 g last week platelets 52,000 ANC 1600 Clinically, patient doing reasonably well now with well compensated moderate anemia, etiology remains unclear, anemia work-up showed presence of anti-D antibodies so he was given high-dose steroid without any improvement Bone marrow evaluation shows no obvious signs of MDS or leukemia or lymphoma At this point, at family's request will refer him to hematology clinic at [facility] in [place] for second opinion and patient will return to clinic 1 week with CBC if there is a further drop in his hemoglobin, will consider blood transfusion and also consider PNH screening Signed By: Fransico Shankar M.D. <<Signature on File>>
== END 2020-04-18 05:41 | disposition home or self-care (01) ==
LOC: ONCMED 05:43
PROVIDERS: PCP Internal Medicine; Visit Provider Internal Medicine Hematology & Oncology
DX: D61.818 Other pancytopenia (principal); D50.9 Iron deficiency anemia, unspecified; E05.90 Thyrotoxicosis, unspecified without thyrotoxic crisis or storm
CPT/HCPCS: 99214

== ENCOUNTER → 2020-04-23 13:46 | Outpatient (BNVA) | payer MEDICARE, OTHER, SELFPAY | PROVIDERS: PCP Internal Medicine; Referring Provider Internal Medicine; Visit Provider Internal Medicine | DX: D61.818 Other pancytopenia (principal); E04.1 Nontoxic single thyroid nodule; E05.90 Thyrotoxicosis, unspecified without thyrotoxic crisis or storm | CPT/HCPCS: 99205 ==

== ENCOUNTER 2020-05-14 13:06 | Outpatient (RCR) | payer MEDICARE, OTHER, SELFPAY ==
[2020-04-22 10:20] LABS: Basophils % 0.3 %; Eosinophils % 0.3 %; Hematocrit 21.6 % (42.0-52.0); Hemoglobin 7.1 g/dL (11.7-16.6); Lymphocytes # 1.6 10^3/uL (0.8-4.8); Lymphocytes % 43.4 %; Mean Corpuscular HGB Conc 32.9 g/dL (30.0-36.0); Mean Corpuscular Hemoglobin 32.3 pg (28.0-34.0); Mean Corpuscular Volume 98.2 fL (80-94); Mean Platelet Volume 10.1 fL (7.4-10.4); Monocytes # 0.5 10^3/uL (0.2-0.9); Monocytes % 12.3 %; Neutrophils # 1.59 10^3/uL (1.8-7.7); Neutrophils % 43.4 %; Nucleated Red Blood Cells % 0 %; Platelet Count 58 10^3/cmm (130-400); Red Cell Distribution Width 17.6 % (12.1-15.1); White Blood Count 3.7 10^3/uL (4.0-10.0)
[2020-04-22] MEDS: acetaminophen 325 mg Tablet 650 MG PO (11:40)
[2020-04-22 11:45] VITALS: BP 99/52; PULSE 88; RESP 18; TEMP 37.3; O2SAT 99
[2020-04-22] MEDS: sodium chloride 0.9% 250 ML 999 ML IV (11:45)
[2020-04-22] MEDS: diphenhydrAMINE 25 mg Capsule PO (11:45)
[2020-04-22 12:00] VITALS: BP 97/41; PULSE 73; RESP 18; TEMP 37.6; O2SAT 99
[2020-04-22 12:15] VITALS: BP 96/42; PULSE 71; RESP 18; TEMP 37.3; O2SAT 99
[2020-04-22 13:35] VITALS: BP 71/48; PULSE 74; RESP 18; TEMP 37; O2SAT 99
[2020-04-22] MEDS: FUROsemide 10 mg/mL SDV 2mL 20 MG IV (13:35)
[2020-04-25 09:26] LABS: Basophils % 0.3 %; Eosinophils % 0.3 %; Hematocrit 26.3 % (42.0-52.0); Hemoglobin 8.8 g/dL (11.7-16.6); Lymphocytes # 1.7 10^3/uL (0.8-4.8); Mean Corpuscular HGB Conc 33.5 g/dL (30.0-36.0); Mean Corpuscular Hemoglobin 31.9 pg (28.0-34.0); Mean Corpuscular Volume 95.3 fL (80-94); Monocytes # 0.5 10^3/uL (0.2-0.9); Monocytes % 11.5 %; Neutrophils # 1.75 10^3/uL (1.8-7.7); Neutrophils % 44.6 %; Nucleated Red Blood Cells % 0 %; Platelet Count 66 10^3/cmm (130-400); Red Blood Count 2.76 10^6/uL (4.1-5.3); Red Cell Distribution Width 16.1 % (12.1-15.1); White Blood Count 3.9 10^3/uL (4.0-10.0)
[2020-05-06] VITALS (9 sets, daily range): BP systolic 94–113; BP diastolic 56–65; PULSE 65–89; RESP 18; TEMP 36.9–37.1; O2SAT 88–98
[2020-05-06 08:58] LABS: Basophils % 0.3 %; Eosinophils % 0.6 %; Hematocrit 24.6 % (42.0-52.0); Hemoglobin 7.9 g/dL (11.7-16.6); Lymphocytes # 1.7 10^3/uL (0.8-4.8); Lymphocytes % 49.6 %; Mean Corpuscular HGB Conc 32.1 g/dL (30.0-36.0); Mean Corpuscular Hemoglobin 31.6 pg (28.0-34.0); Mean Corpuscular Volume 98.4 fL (80-94); Mean Platelet Volume 9.8 fL (7.4-10.4); Monocytes # 0.3 10^3/uL (0.2-0.9); Monocytes % 8.9 %; Neutrophils # 1.41 10^3/uL (1.8-7.7); Neutrophils % 40.6 %; Nucleated Red Blood Cells % 0 %; Platelet Count 158 10^3/cmm (130-400); Red Cell Distribution Width 17.3 % (12.1-15.1); White Blood Count 3.5 10^3/uL (4.0-10.0)
[2020-05-06] MEDS: diphenhydrAMINE 25 mg Capsule PO (10:50)
[2020-05-06] MEDS: sodium chloride 0.9% 250 ML 999 ML IV (10:50)
[2020-05-06] MEDS: acetaminophen 325 mg Tablet 650 MG PO (10:50)
[2020-05-06] MEDS: FUROsemide 10 mg/mL SDV 2mL 20 MG IV (12:50)
[2020-05-14 15:47] LABS: Basophils % 0.3 %; Eosinophils % 0.6 %; Hematocrit 28.4 % (42.0-52.0); Lymphocytes # 1.7 10^3/uL (0.8-4.8); Lymphocytes % 46.5 %; Mean Corpuscular HGB Conc 31.7 g/dL (30.0-36.0); Mean Corpuscular Hemoglobin 31.4 pg (28.0-34.0); Mean Platelet Volume 11.5 fL (7.4-10.4); Monocytes # 0.4 10^3/uL (0.2-0.9); Monocytes % 10.9 %; Neutrophils % 41.7 %; Nucleated Red Blood Cells % 0 %; Platelet Count 78 10^3/cmm (130-400); Red Blood Count 2.87 10^6/uL (4.1-5.3); Red Cell Distribution Width 19.1 % (12.1-15.1); White Blood Count 3.6 10^3/uL (4.0-10.0)
== END 2020-05-15 23:59 | disposition home or self-care (01) ==
LOC: ONCMED 13:06
PROVIDERS: Internal Medicine Hematology & Oncology; PCP Internal Medicine; Visit Provider Internal Medicine Medical Oncology
DX: D50.9 Iron deficiency anemia, unspecified (principal); D61.818 Other pancytopenia
CPT/HCPCS: 36415; 36430; 85025; 86850; 86900; 86920; J1940; J7050; P9016

== ENCOUNTER 2020-06-10 10:06 | Outpatient (RCR) | payer MEDICARE, OTHER, SELFPAY ==
[2020-06-10 10:32] LABS: Basophils % 0.3 %; Hematocrit 27.2 % (42.0-52.0); Hemoglobin 9.1 g/dL (11.7-16.6); Lymphocytes # 1.6 10^3/uL (0.8-4.8); Lymphocytes % 52.7 %; Mean Corpuscular HGB Conc 33.5 g/dL (30.0-36.0); Mean Corpuscular Hemoglobin 35.1 pg (28.0-34.0); Mean Platelet Volume 10.4 fL (7.4-10.4); Monocytes # 0.3 10^3/uL (0.2-0.9); Monocytes % 9.3 %; Neutrophils # 1.14 10^3/uL (1.8-7.7); Neutrophils % 36.7 %; Nucleated Red Blood Cells % 0 %; Platelet Count 82 10^3/cmm (130-400); Red Blood Count 2.59 10^6/uL (4.1-5.3); Red Cell Distribution Width 22.7 % (12.1-15.1); White Blood Count 3.1 10^3/uL (4.0-10.0)
== END 2020-06-14 23:59 | disposition home or self-care (01) ==
LOC: ONCMED 10:06
PROVIDERS: PCP Internal Medicine; Visit Provider Internal Medicine Hematology & Oncology
DX: D61.818 Other pancytopenia (principal); D50.9 Iron deficiency anemia, unspecified
CPT/HCPCS: 36415; 85025

== ENCOUNTER 2020-06-17 05:21 | Outpatient (RCR) | payer MEDICARE, OTHER, SELFPAY ==
--- NOTE | 2020-06-17 10:31 | ONC FU_ITS ---
Dr. Shaknar follow up note Patient: Erich Case Unit #: [id number]: [id number] Dicatated By: Fransico Shankar M.D.Date of Visit:June 17, 2020 Onc Med Follow-up/Prog Note History of Present Illness: Mr. Case is a 75-year-old gentleman with history of right leg DVT diagnosed in 1997, as per patient he was treated with heparin for 5 days as inpatient followed by probably short course of Coumadin for few months. 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 Mr Case reports that he did fine until in 2016 when he felt left groin discomfort/pain and went to see his PMD. Eventually a left leg venous Doppler study was done which confirmed DVT from the left groin to left knee . He was started on Eliquis 5 mg twice a day for a few weeks and then dose was reduced to 2.5 mg p.o. twice daily, and he is on this dose currently. Mr Case reports he had a routine lab work-up done in February 2020 and he was informed that he had anemia. His iron studies were normal, but the B12 was on the low side of normal. He was started on oral B12 supplement by his PMD. Patient denies any history of alcohol use for the last 30 years, before that he used to consume significant amount of alcohol. Denies any history of stomach surgery denies any peripheral numbness, denies any abdominal pain or fullness, denies any skin rash or itching, denies any jaundice, denies any melena or hematochezia denies any hemoptysis or hematemesis. Denies any started on new medication, Denies any night sweats, denies any peripheral lymphadenopathy or abdominal fullness, denies any recurrent fever. complaining of about 30 pound weight loss in the last 6 months and also complaining of right thyroid nodule, his lab work-up done by PMD confirmed hyperthyroidism and he is currently being evaluated by ENT, Dr Coffman.And endocrinology Mr Case was last seen by on 03/12/2020. His hemoglobin at that time was 10.0, white count was 3.4 and platelets were 51,000. His platelet count was 81,000 on March 06, 2020. Mr. Case reports that he was given radioactive iodine on Wednesday prior to this visit for a thyroid scan . He continues with the B12 weekly. It is noted that peripheral smear findings from his CBC on March 11, 2020 report leukopenia with neutropenia macrocytic anemia thrombocytopenia nucleated red blood cells identified no blast or blast equivalent cells identified the above findings of pancytopenia are concerning for myeloid disorder so, specimen has been sent for flow cytometry .Which was done on March 11, 2020 and it shows no abnormality is tolerating the B12 well, His anemia work-up was inconclusive including Robson test were negative but positive for anti-D antibody, patient was given trial of high-dose steroids, without any improvement subsequently patient underwent bone marrow on April 11, 2020 which showed normocellular bone marrow no overt dyspoietic or megaloblastic changes seen no evidence of bone marrow infiltrative disorder iron stores increased, flow cytometry shows no aberrant myeloid or lymphoid population Patient was referred to [facility] for persistent pancytopenia with no obvious bone marrow abnormality and inconclusive initial work-up, patient was seen by on May 28, 2020 and her recommendations were CT scan of chest abdomen pelvis and she also repeated folate, copper and iron studies and his repeat B12 level there was around 390, for which she recommended weekly B12 supplement x4 followed by monthly, His repeat CBC done at [facility] on May 28, 2020 showed persistent pancytopenia with ANC of 1.2, hemoglobin 9.1 g MCV 101 platelets 85,000she was awaiting bone marrow slides from [facility] and also considering repeating Bone marrow biopsy and next generation sequencing with [employer] for evaluation of myeloid malignancies, as per patient he was also mentioned about possibility of aplastic anemia. Follow-up CT scan of chest abdomen pelvis done at [facility] on June 07, 2020 showed mass in the right lobe of thyroid size about 3 cm and 5 mm right upper lobe nodule follow-up in 1 year recommended otherwise liver, spleen appears normal and no central lymphadenopathy. As far as thyroid nodule is concerned, in recent past patient was evaluated by Dr. Coffman and was started on methimazole. Came for follow-up, denies any specific complaint except mild dyspnea on exertion but much better compared to earlier, denies any melena or hematochezia, denies any nausea or vomiting denies any diarrhea constipation denies any night sweats, or any peripheral lymphadenopathy, denies any jaundice Medications: Advair Diskus 2 Puff(s) (of 250-50 mcg/dose) Aerosol Powder, Breath Activated Inhalation daily, Eliquis 1 Tablet (of 2.5 mg) Oral daily, Tamsulosin HCl 1 Capsule (of 0.4 mg) Oral daily Allergies: Vicodin Review of Systems: Review of Systems is not available for this patient. Vital Signs: Performed on June 17, 2020 09:18 Height - 72.00 in Weight - 163 lbs (LOW) BSA - 1.95 sq.m BMI - 22.11 Temperature - 98.0 F (LOW) Pulse - 70 /min Respiration - 18 /min BP - 156/66 mm(hg) (HIGH) O2 Sat - 99 % Pain - 0 Fatigue - 6 Performance Status: 1 - No physically strenuous activity, but ambulatory and able to carry out light or sedentary work (e.g. office work, light house work). (ECOG) Physical Examination: ENMT - No mouth sores, no thrush, no jaundice, Respiratory - Lungs are clear to auscultation, Cardiovascular - Regular rate and rhythm of heart, Abdomen - Soft, bowel sounds present, Extremities - No visible edema. Lab/Imaging: Test performed on May 06, 2020 08:35 Leukocyte Reduced RBC [id number] AP RCLR XM COMPATIBLE Anti-D Positive / 4+ Blood Type AP Antibody Screen (Gel) NEGATIVE Test performed on May 06, 2020 08:30 WBC 3.5 10 3/uL RBC 2.50 10 6/uL HGB 7.9 g/dL HCT 24.6 % MCV 98.4 fL MCH 31.6 pg MCHC 32.1 g/dL RDW 17.3 % Platelet Count 158 10 3/cmm MPV 9.8 fL Neutrophils 1.41 10 3/uL Lymphocytes 1.7 10 3/uL Monocytes 0.3 10 3/uL Eosinophils 0.0 10 3/uL Basophils 0.0 10 3/uL Neutrophil % 40.6 % Lymphocyte % 49.6 % Monocyte % 8.9 % Eosinophil % 0.6 % Basophils % 0.3 % NRBC % 0 % Test performed on Mar 12, 2020 08:35 Platelet Estimate ADDED TO 03/11 CBC Test performed on Mar 11, 2020 10:35 Anisocytosis 1+ Macrocytosis 1+ Manual Segs Abs 1.0 10/cmm Manual Bands Abs 0.3 10 3/cmm Manual Neutrophils Abs 1.3 10 3/cmm Manual Monocytes Abs 0.4 10 3/cmm Manual Eosinophils Abs 0.0 10 3/cmm Manual Basophils Abs 0.0 10 3/cmm Leukemia/Lymphoma Interp MDS Test performed on Mar 06, 2020 09:55 Vitamin B12 260 pg/mL Impression: Pancytopenia including Macrocytic, hyperchromic anemia probably multifactorial including B12 deficiency, considering his age underlying myelodysplasia cannot be ruled out, lab work-up done in the PMDs office, on February 21, 2020 showed white blood count 3.2 hemoglobin 9.6 hematocrit 28.2 platelets 168,000 Iron 116, iron saturation 52, TIBC 222, ferritin 951, B12 286, SPEP no restricted protein seen TSH less than 0.06 , T4 2.7, Robson test direct and indirect negative but positive for anti-D antibodies, Was given high-dose steroids for 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 No evidence of bone marrow infiltrative disorder. Iron stores increased. No evidence of reticulin fibrosis. Flow cytometry was unremarkable. As per pathology FISH for MDS was negative Patient was referred to [facility] he was seen on May 28, [address] Alvarado and her recommendations were CT scan of chest abdomen pelvis, continue with B12 supplements weekly x4 followed by monthly as his lab work-up done there at [facility] showed B12 level was 390, hemoglobin was 9.1 g, ANC was 1.2 platelets 85,000, also tested for HIV, hepatitis serology, CMV PCR, parvovirus PCR all were negative. And she also recommended, if CT scan of abdomen shows cirrhosis, consider HFE mutation testing. And she may consider repeating bone marrow biopsy with NGS with myeloseq CT scan of chest abdomen pelvis was done at [facility] on June 07, 2020 showed no hepatosplenomegaly, no central lymphadenopathy but there was a persistent mass in the right thyroid for which he was evaluated by Dr. Coffman here locally, and was diagnosed with hypothyroidism for which she was started on methimazole Plan: Discussed with patient regarding his labs from June 10, 2020 which shows white blood count 3.1 hemoglobin 9.1 g per good 27.2 platelets 82,000 with ANC 1140 Clinically, patient doing well, his follow-up lab work-up shows stable CBC, his repeat CBC done at [facility] on May 28, 2020 showed hemoglobin 9.1 g, ANC 1.2 and platelets 85,000 and repeat labs done here showed similar values thus his hemoglobin is stabilized as well as mild/moderate thrombocytopenia and leukopenia. Work-up is in progress at [facility], we will request [facility] clinic at [place] to give him B12 supplement every week and repeat CBC every week and the patient return to clinic in 1 month with CBC and for further discussion. Patient was encouraged to follow-up with wound clinic for further testing and evaluation Signed By: Fransico Shankar M.D. <<Signature on File>>
== END 2020-07-15 23:59 | disposition home or self-care (01) ==
LOC: ONCMED 05:21
PROVIDERS: PCP Internal Medicine; Visit Provider Internal Medicine Hematology & Oncology
DX: D61.818 Other pancytopenia (principal); D51.9 Vitamin B12 deficiency anemia, unspecified; D50.9 Iron deficiency anemia, unspecified; N40.0 Benign prostatic hyperplasia without lower urinary tract symptoms; E03.9 Hypothyroidism, unspecified; E04.1 Nontoxic single thyroid nodule; Z79.899 Other long term (current) drug therapy
CPT/HCPCS: 99214

== ENCOUNTER → 2020-06-25 09:43 | Outpatient (BNVA) | payer MEDICARE, OTHER, SELFPAY | PROVIDERS: PCP Internal Medicine; Visit Provider Internal Medicine Hematology & Oncology | DX: E05.90 Thyrotoxicosis, unspecified without thyrotoxic crisis or storm (principal); D61.818 Other pancytopenia | CPT/HCPCS: 80053; 83516; 84439; 84443; 84480; 85025 ==

== ENCOUNTER → 2020-07-02 08:27 | Outpatient (BNVA) | payer MEDICARE, OTHER, SELFPAY | PROVIDERS: PCP Internal Medicine; Visit Provider Internal Medicine Hematology & Oncology | DX: D61.818 Other pancytopenia (principal) | CPT/HCPCS: 85025 ==

== ENCOUNTER → 2020-07-09 09:08 | Outpatient (BNVA) | payer MEDICARE, OTHER, SELFPAY | PROVIDERS: PCP Internal Medicine; Referring Provider Internal Medicine Hematology & Oncology; Visit Provider Internal Medicine Hematology & Oncology | DX: D61.818 Other pancytopenia (principal) | CPT/HCPCS: 85025 ==

== ENCOUNTER 2020-07-18 05:53 | Outpatient (RCR) | payer MEDICARE, OTHER, SELFPAY ==
--- NOTE | 2020-07-18 14:32 | ONC FU_ITS ---
Dr. Shankar follow up note Patient: Erich Case Unit #: [id number]: [id number] Dicatated By: Fransico Shankar M.D.Date of Visit:Jul 18, 2020 Onc Med Follow-up/Prog Note History of Present Illness: Mr. Case is a 75-year-old gentleman with history of right leg DVT diagnosed in 1997, as per patient he was treated with heparin for 5 days as inpatient followed by probably short course of Coumadin for few months. 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 Mr Case reports that he did fine until in 2016 when he felt left groin discomfort/pain and went to see his PMD. Eventually a left leg venous Doppler study was done which confirmed DVT from the left groin to left knee . He was started on Eliquis 5 mg twice a day for a few weeks and then dose was reduced to 2.5 mg p.o. twice daily, and he is on this dose currently. Mr Case reports he had a routine lab work-up done in February 2020 and he was informed that he had anemia. His iron studies were normal, but the B12 was on the low side of normal. He was started on oral B12 supplement by his PMD. Patient denies any history of alcohol use for the last 30 years, before that he used to consume significant amount of alcohol. Denies any history of stomach surgery denies any peripheral numbness, denies any abdominal pain or fullness, denies any skin rash or itching, denies any jaundice, denies any melena or hematochezia denies any hemoptysis or hematemesis. Denies any started on new medication, Denies any night sweats, denies any peripheral lymphadenopathy or abdominal fullness, denies any recurrent fever. complaining of about 30 pound weight loss in the last 6 months and also complaining of right thyroid nodule, his lab work-up done by PMD confirmed hyperthyroidism and he is currently being evaluated by ENT, Dr Coffman.And endocrinology Mr Case was last seen by on 03/12/2020. His hemoglobin at that time was 10.0, white count was 3.4 and platelets were 51,000. His platelet count was 81,000 on March 06, 2020. Mr. Case reports that he was given radioactive iodine on Wednesday prior to this visit for a thyroid scan . He continues with the B12 weekly. It is noted that peripheral smear findings from his CBC on March 11, 2020 report leukopenia with neutropenia macrocytic anemia thrombocytopenia nucleated red blood cells identified no blast or blast equivalent cells identified the above findings of pancytopenia are concerning for myeloid disorder so, specimen has been sent for flow cytometry .Which was done on March 11, 2020 and it shows no abnormality is tolerating the B12 well, His anemia work-up was inconclusive including Robson test were negative but positive for anti-D antibody, patient was given trial of high-dose steroids, without any improvement subsequently patient underwent bone marrow on April 11, 2020 which showed normocellular bone marrow no overt dyspoietic or megaloblastic changes seen no evidence of bone marrow infiltrative disorder iron stores increased, flow cytometry shows no aberrant myeloid or lymphoid population Patient was referred to [facility] for persistent pancytopenia with no obvious bone marrow abnormality and inconclusive initial work-up, patient was seen by on May 28, 2020 and her recommendations were CT scan of chest abdomen pelvis and she also repeated folate, copper and iron studies and his repeat B12 level there was around 390, for which she recommended weekly B12 supplement x4 followed by monthly, His repeat CBC done at [facility] on May 28, 2020 showed persistent pancytopenia with ANC of 1.2, hemoglobin 9.1 g MCV 101 platelets 85,000she was awaiting bone marrow slides from [facility] and also considering repeating Bone marrow biopsy and next generation sequencing with [employer] for evaluation of myeloid malignancies, as per patient he was also mentioned about possibility of aplastic anemia., Patient was advised to continue B12 supplement with a loading dose weekly x4 which she completed the last week of June 2020 then switch to once a month maintenance dose, patient underwent follow-up bone marrow evaluation at [facility] on July 16, 2020, result is pending Follow-up CT scan of chest abdomen pelvis done at [facility] on June 07, 2020 showed mass in the right lobe of thyroid size about 3 cm and 5 mm right upper lobe nodule follow-up in 1 year recommended otherwise liver, spleen appears normal and no central lymphadenopathy. As far as thyroid nodule is concerned, in recent past patient was evaluated by Dr. Coffman and was started on methimazole. Came for follow-up, denies any specific complaints, more energetic, denies any dyspnea on exertion denies any melena or hematochezia denies any hemoptysis or hematemesis denies any fever chills denies any night sweats, patient recently underwent bone marrow evaluation at [facility] awaiting final pathology report, patient completed loading dose of B12 supplement weekly x4 and now is being switched to once a month and he is getting his supplement in [facility]. Medications: Advair Diskus 2 Puff(s) (of 250-50 mcg/dose) Aerosol Powder, Breath Activated Inhalation daily, Eliquis 1 Tablet (of 2.5 mg) Oral daily, Tamsulosin HCl 1 Capsule (of 0.4 mg) Oral daily Allergies: Vicodin Review of Systems: Review of Systems is not available for this patient. Vital Signs: Performed on Jul 18, 2020 14:10 Height - 72.00 in Weight - 163.2 lbs (HIGH) BSA - 1.95 sq.m BMI - 22.13 Temperature - 97.3 F (LOW) Pulse - 70 /min Respiration - 18 /min BP - 147/62 mm(hg) (HIGH) O2 Sat - 98 % Pain - 2 Fatigue - 5 Performance Status: 0 - Fully active, able to carry on all predisease activities without restrictions. (ECOG) Physical Examination: ENMT - No mouth sores, no thrush, no jaundice no cervical lymphadenopathy, Respiratory - Lungs are clear to auscultation, Cardiovascular - Regular rate and rhythm of heart, Abdomen - Soft, bowel sounds present, Extremities - No visible edema or rash. Lab/Imaging: Test performed on Jul 16, 2020 10:14 WBC 3.4 10^9/L RBC 2.63 10^12/L HGB 10.1 g/dL HCT 31.0 % MCV 117.9 fl MCH 38.4 pg MCHC 32.6 g/dL RDW 17.4 % Platelet Count 90 10^9/L MPV 12.2 fL Neutrophils (Gran) 1.20 10^9/L Lymphocytes 1.8 10^9/L Monocytes 0.3 10^9/L Eosinophils 0.0 10^9/L Basophils 0.0 10^9/L Manual Lymphocytes 54.1 % Manual Monocytes 9.4 % Manual Eosinophils 0.9 % Manual Basophils 0.3 % Test performed on May 06, 2020 08:35 Leukocyte Reduced RBC [id number] AP RCLR XM COMPATIBLE Anti-D Positive / 4+ Blood Type AP Antibody Screen (Gel) NEGATIVE Test performed on May 06, 2020 08:30 Neutrophil % 40.6 % Lymphocyte % 49.6 % Monocyte % 8.9 % Eosinophil % 0.6 % Basophils % 0.3 % NRBC % 0 % Test performed on Mar 12, 2020 08:35 Platelet Estimate ADDED TO 03/11 CBC Test performed on Mar 11, 2020 10:35 Anisocytosis 1+ Macrocytosis 1+ Manual Segs Abs 1.0 10/cmm Manual Bands Abs 0.3 10 3/cmm Manual Neutrophils Abs 1.3 10 3/cmm Manual Monocytes Abs 0.4 10 3/cmm Manual Eosinophils Abs 0.0 10 3/cmm Manual Basophils Abs 0.0 10 3/cmm Leukemia/Lymphoma Interp MDS Test performed on Mar 06, 2020 09:55 Vitamin B12 260 pg/mL Impression: Pancytopenia including Macrocytic, hyperchromic anemia probably multifactorial including B12 deficiency, considering his age underlying myelodysplasia cannot be ruled out, lab work-up done in the PMDs office, on February 21, 2020 showed white blood count 3.2 hemoglobin 9.6 hematocrit 28.2 platelets 168,000 Iron 116, iron saturation 52, TIBC 222, ferritin 951, B12 286, SPEP no restricted protein seen TSH less than 0.06 , T4 2.7, Robson test direct and indirect negative but positive for anti-D antibodies, Was given high-dose steroids for 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 No evidence of bone marrow infiltrative disorder. Iron stores increased. No evidence of reticulin fibrosis. Flow cytometry was unremarkable. As per pathology FISH for MDS was negative Patient was referred to [facility] he was seen on May 28, [address] Alvarado and her recommendations were CT scan of chest abdomen pelvis, continue with B12 supplements weekly x4 followed by monthly as his lab work-up done there at [facility] showed B12 level was 390, hemoglobin was 9.1 g, ANC was 1.2 platelets 85,000, also tested for HIV, hepatitis serology, CMV PCR, parvovirus PCR all were negative. And she also recommended, if CT scan of abdomen shows cirrhosis, consider HFE mutation testing. And she may consider repeating bone marrow biopsy with NGS with myeloseq CT scan of chest abdomen pelvis was done at [facility] on June 07, 2020 showed no hepatosplenomegaly, no central lymphadenopathy but there was a persistent mass in the right thyroid for which he was evaluated by Dr. Coffman here locally, and was diagnosed with hypothyroidism for which she was started on methimazole Plan: discussed with patient regarding his labs from July 16, 2020 shows white blood count 3.4 hemoglobin 10.1 hematocrit 31 platelets 90,000 MCV 117 ANC 1200 Clinically, patient is doing well tolerated loading dose of B12 supplement now being switched to monthly B12 maintenance therapy. Patient is receiving his B12 shots in [facility], patient underwent bone marrow evaluation at [facility] on July 16, 2020 and report is pending. Overall patient is feeling better his pancytopenia is improving/stable on B12 supplements further evaluation including bone marrow and molecular profiling done yesterday at [facility], results is pending, will continue to monitor he will return to clinic in 1 month with CBC and will also obtain records from [facility] review. Signed By: Fransico Shankar M.D. <<Signature on File>>
== END 2020-08-14 23:59 | disposition home or self-care (01) ==
LOC: ONCMED 05:53
PROVIDERS: PCP Internal Medicine; Visit Provider Internal Medicine Hematology & Oncology
DX: D61.818 Other pancytopenia (principal); D51.9 Vitamin B12 deficiency anemia, unspecified; N40.0 Benign prostatic hyperplasia without lower urinary tract symptoms; E03.9 Hypothyroidism, unspecified; E04.1 Nontoxic single thyroid nodule; Z86.718 Personal history of other venous thrombosis and embolism; Z79.01 Long term (current) use of anticoagulants; Z79.899 Other long term (current) drug therapy
CPT/HCPCS: 85025; 99214

== ENCOUNTER → 2020-08-16 09:24 | Outpatient (BNVA) | payer MEDICARE, OTHER, SELFPAY | PROVIDERS: PCP Internal Medicine; Visit Provider Emergency Medicine | DX: D61.818 Other pancytopenia (principal); Z71.89 Other specified counseling | CPT/HCPCS: 85025 ==

== ENCOUNTER 2020-08-22 05:46 | Outpatient (RCR) | payer MEDICARE, OTHER, SELFPAY ==
--- NOTE | 2020-09-02 08:49 | ONC FU_ITS ---
Dr. Shankar follow up note Patient: Ercih Case Unit #: [id number]: [id number] Dicatated By: Fransico Shankar M.D.Date of Visit:Aug 22, 2020 Onc Med Follow-up/Prog Note History of Present Illness: Mr. Case is a 75-year-old gentleman with history of right leg DVT diagnosed in 1997, as per patient he was treated with heparin for 5 days as inpatient followed by probably short course of Coumadin for few months. 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 Mr Case reports that he did fine until in 2016 when he felt left groin discomfort/pain and went to see his PMD. Eventually a left leg venous Doppler study was done which confirmed DVT from the left groin to left knee . He was started on Eliquis 5 mg twice a day for a few weeks and then dose was reduced to 2.5 mg p.o. twice daily, and he is on this dose currently. Mr Case reports he had a routine lab work-up done in February 2020 and he was informed that he had anemia. His iron studies were normal, but the B12 was on the low side of normal. He was started on oral B12 supplement by his PMD. Patient denies any history of alcohol use for the last 30 years, before that he used to consume significant amount of alcohol. Denies any history of stomach surgery denies any peripheral numbness, denies any abdominal pain or fullness, denies any skin rash or itching, denies any jaundice, denies any melena or hematochezia denies any hemoptysis or hematemesis. Denies any started on new medication, Denies any night sweats, denies any peripheral lymphadenopathy or abdominal fullness, denies any recurrent fever. complaining of about 30 pound weight loss in the last 6 months and also complaining of right thyroid nodule, his lab work-up done by PMD confirmed hyperthyroidism and he is currently being evaluated by ENT, Dr Coffman.And endocrinology Mr Case was last seen by on 03/12/2020. His hemoglobin at that time was 10.0, white count was 3.4 and platelets were 51,000. His platelet count was 81,000 on March 06, 2020. Mr. Case reports that he was given radioactive iodine on Wednesday prior to this visit for a thyroid scan . He continues with the B12 weekly. It is noted that peripheral smear findings from his CBC on March 11, 2020 report leukopenia with neutropenia macrocytic anemia thrombocytopenia nucleated red blood cells identified no blast or blast equivalent cells identified the above findings of pancytopenia are concerning for myeloid disorder so, specimen has been sent for flow cytometry .Which was done on March 11, 2020 and it shows no abnormality is tolerating the B12 well, His anemia work-up was inconclusive including Robson test were negative but positive for anti-D antibody, patient was given trial of high-dose steroids, without any improvement subsequently patient underwent bone marrow on April 11, 2020 which showed normocellular bone marrow no overt dyspoietic or megaloblastic changes seen no evidence of bone marrow infiltrative disorder iron stores increased, flow cytometry shows no aberrant myeloid or lymphoid population Patient was referred to [place] for persistent pancytopenia with no obvious bone marrow abnormality and inconclusive initial work-up, patient was seen by on May 28, 2020 and her recommendations were CT scan of chest abdomen pelvis and she also repeated folate, copper and iron studies and his repeat B12 level there was around 390, for which she recommended weekly B12 supplement x4 followed by monthly, His repeat CBC done at [facility] on May 28, 2020 showed persistent pancytopenia with ANC of 1.2, hemoglobin 9.1 g MCV 101 platelets 85,000she was awaiting bone marrow slides from [facility] and also considering repeating Bone marrow biopsy and next generation sequencing with [employer] for evaluation of myeloid malignancies, as per patient he was also mentioned about possibility of aplastic anemia., Patient was advised to continue B12 supplement with a loading dose weekly x4 which she completed the last week of June 2020 then switch to once a month maintenance dose, patient underwent follow-up bone marrow evaluation at [place] on July 16, 2020, result is pending Follow-up CT scan of chest abdomen pelvis done at [facility] on June 07, 2020 showed mass in the right lobe of thyroid size about 3 cm and 5 mm right upper lobe nodule follow-up in 1 year recommended otherwise liver, spleen appears normal and no central lymphadenopathy. As far as thyroid nodule is concerned, in recent past patient was evaluated by Dr. Coffman and was started on methimazole. Came for follow-up, denies any specific complaints, no fever chills, no nausea or vomiting, no diarrhea or constipation, no peripheral numbness, no night sweats, no weight loss, no recurrent fever, no shortness of breath palpitation, tolerating monthly parenteral B12 supplement at [facility] clinic, well Medications: Advair Diskus 2 Puff(s) (of 250-50 mcg/dose) Aerosol Powder, Breath Activated Inhalation daily, Eliquis 1 Tablet (of 2.5 mg) Oral daily, Tamsulosin HCl 1 Capsule (of 0.4 mg) Oral daily Allergies: Vicodin Review of Systems: Review of Systems is not available for this patient. Vital Signs: Performed on Aug 22, 2020 16:07 Height - 72.00 in Weight - 162.5 lbs (LOW) BSA - 1.95 sq.m BMI - 22.04 Temperature - 97.8 F (LOW) Pulse - 69 /min Respiration - 18 /min BP - 143/66 mm(hg) (HIGH) O2 Sat - 98 % Pain - 0 Performance Status: 0 - Fully active, able to carry on all predisease activities without restrictions. (ECOG) Physical Examination: ENMT - No mouth sores, or thrush, no jaundice no cervical lymphadenopathy, Respiratory - Lungs are clear to auscultation, Cardiovascular - Regular rate and rhythm of heart, Abdomen - Soft, bowel sounds present, Extremities - No visible edema or rash. Lab/Imaging: Test performed on Jul 16, 2020 10:14 WBC 3.4 10^9/L RBC 2.63 10^12/L HGB 10.1 g/dL HCT 31.0 % MCV 117.9 fl MCH 38.4 pg MCHC 32.6 g/dL RDW 17.4 % Platelet Count 90 10^9/L MPV 12.2 fL Neutrophils (Gran) 1.20 10^9/L Lymphocytes 1.8 10^9/L Monocytes 0.3 10^9/L Eosinophils 0.0 10^9/L Basophils 0.0 10^9/L Manual Lymphocytes 54.1 % Manual Monocytes 9.4 % Manual Eosinophils 0.9 % Manual Basophils 0.3 % Test performed on May 06, 2020 08:35 Leukocyte Reduced RBC [id number] AP RCLR XM COMPATIBLE Anti-D Positive / 4+ Blood Type AP Antibody Screen (Gel) NEGATIVE Test performed on May 06, 2020 08:30 Neutrophil % 40.6 % Lymphocyte % 49.6 % Monocyte % 8.9 % Eosinophil % 0.6 % Basophils % 0.3 % NRBC % 0 % Test performed on Mar 12, 2020 08:35 Platelet Estimate ADDED TO 03/11 CBC Test performed on Mar 11, 2020 10:35 Anisocytosis 1+ Macrocytosis 1+ Manual Segs Abs 1.0 10/cmm Manual Bands Abs 0.3 10 3/cmm Manual Neutrophils Abs 1.3 10 3/cmm Manual Monocytes Abs 0.4 10 3/cmm Manual Eosinophils Abs 0.0 10 3/cmm Manual Basophils Abs 0.0 10 3/cmm Leukemia/Lymphoma Interp MDS Test performed on Mar 06, 2020 09:55 Vitamin B12 260 pg/mL Impression: Pancytopenia including Macrocytic, hyperchromic anemia probably multifactorial including B12 deficiency, considering his age underlying myelodysplasia cannot be ruled out, lab work-up done in the PMDs office, on February 21, 2020 showed white blood count 3.2 hemoglobin 9.6 hematocrit 28.2 platelets 168,000 Iron 116, iron saturation 52, TIBC 222, ferritin 951, B12 286, SPEP no restricted protein seen TSH less than 0.06 , T4 2.7, Robson test direct and indirect negative but positive for anti-D antibodies, Was given high-dose steroids for 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 No evidence of bone marrow infiltrative disorder. Iron stores increased. No evidence of reticulin fibrosis. Flow cytometry was unremarkable. As per pathology FISH for MDS was negative Patient was referred to [place] [facility] he was seen on May 28, [address] Alvarado and her recommendations were CT scan of chest abdomen pelvis, continue with B12 supplements weekly x4 followed by monthly as his lab work-up done there at [place] showed B12 level was 390, hemoglobin was 9.1 g, ANC was 1.2 platelets 85,000, also tested for HIV, hepatitis serology, CMV PCR, parvovirus PCR all were negative. And she also recommended, if CT scan of abdomen shows cirrhosis, consider HFE mutation testing. And she may consider repeating bone marrow biopsy with NGS with myeloseq CT scan of chest abdomen pelvis was done at [place] on June 07, 2020 showed no hepatosplenomegaly, no central lymphadenopathy but there was a persistent mass in the right thyroid for which he was evaluated by Dr. Coffman here locally, and was diagnosed with hypothyroidism for which she was started on methimazole Plan: Discussed with patient regarding his labs from from August 16, 2020 which showed white blood count 2.9 hemoglobin 10.7 hematocrit 32.1 platelets 92,000 MCV 117.2 Clinically, patient is doing well with no new signs his follow-up labs shows patient has persistent pancytopenia but blood counts are stable, patient was seen at [place] [facility] on August 06, 2020 as patient did not require blood transfusion since April 2020 and his hemoglobin is stable around 9 to 10 g range and platelet counts remained above 50,000 and no evidence of gross bleeding, it was suggested that he should continue monthly B12 supplements and as long as he remains transfusion independent no need for treatment for his MDS but if in future, transfusion required then trial of erythropoietin stimulating agents may be considered or [facility] has clinical trial available with roxadustat, or oral HIF inhibitor while patient with a low risk MDS and/or transfusion burden. As his follow-up labs shows persistent but stable pancytopenia and patient is transfusion independent so we will, as recommended by [place] [facility], continue with monthly B12 supplement patient prefer to get it at [facility] clinic, Patient will return to clinic in 2 months with CBC. Patient was advised to call us in case there is evidence of gross bleeding or petechia or ecchymosis or progressive generalized weakness and fatigue. Signed By: Fransico Shankar M.D. <<Signature on File>>
== END 2020-09-14 23:59 | disposition home or self-care (01) ==
LOC: ONCMED 05:46
PROVIDERS: PCP Internal Medicine; Visit Provider Internal Medicine Hematology & Oncology
DX: D61.818 Other pancytopenia (principal); D51.9 Vitamin B12 deficiency anemia, unspecified; N40.0 Benign prostatic hyperplasia without lower urinary tract symptoms; E03.9 Hypothyroidism, unspecified; E04.1 Nontoxic single thyroid nodule; Z86.718 Personal history of other venous thrombosis and embolism; Z79.01 Long term (current) use of anticoagulants; Z79.899 Other long term (current) drug therapy
CPT/HCPCS: 99214

== ENCOUNTER → 2020-09-03 10:30 | Outpatient (BNVA) | payer MEDICARE, OTHER, SELFPAY | PROVIDERS: PCP Internal Medicine; Visit Provider Nurse Practitioner Family | DX: J06.9 Acute upper respiratory infection, unspecified (principal); Z20.822 Contact with and (suspected) exposure to COVID-19 | CPT/HCPCS: 87635 ==

== ENCOUNTER → 2020-09-16 10:05 | Outpatient (BNVA) | payer MEDICARE, OTHER, SELFPAY | PROVIDERS: PCP Internal Medicine; Referring Provider Psychiatry & Neurology Neurology; Visit Provider Nurse Practitioner Family | DX: D61.818 Other pancytopenia (principal); E53.8 Deficiency of other specified B group vitamins; E04.1 Nontoxic single thyroid nodule; E05.90 Thyrotoxicosis, unspecified without thyrotoxic crisis or storm | CPT/HCPCS: 85025 ==

== ENCOUNTER → 2020-10-16 11:19 | Outpatient (BNVA) | payer MEDICARE, OTHER, SELFPAY | PROVIDERS: PCP Internal Medicine; Visit Provider Nurse Practitioner Family | DX: D50.8 Other iron deficiency anemias (principal); D61.818 Other pancytopenia | CPT/HCPCS: 85025 ==

== ENCOUNTER 2020-10-23 15:11 | Outpatient (CLI) | payer MEDICARE, OTHER, SELFPAY ==
--- NOTE | 2020-10-23 15:47 | ONC FU_ITS ---
Dr. Shankar follow up note Patient: Erich Case Unit #: [id number]: 1945 Dicatated By: Fransico Shankar M.D.Date of Visit:Oct 23, 2020 Onc Med Follow-up/Prog Note History of Present Illness: Mr. Case is a 75-year-old gentleman with history of right leg DVT diagnosed in 1997, as per patient he was treated with heparin for 5 days as inpatient followed by probably short course of Coumadin for few months. 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 Mr Case reports that he did fine until in 2016 when he felt left groin discomfort/pain and went to see his PMD. Eventually a left leg venous Doppler study was done which confirmed DVT from the left groin to left knee . He was started on Eliquis 5 mg twice a day for a few weeks and then dose was reduced to 2.5 mg p.o. twice daily, and he is on this dose currently. Mr Case reports he had a routine lab work-up done in February 2020 and he was informed that he had anemia. His iron studies were normal, but the B12 was on the low side of normal. He was started on oral B12 supplement by his PMD. Patient denies any history of alcohol use for the last 30 years, before that he used to consume significant amount of alcohol. Denies any history of stomach surgery denies any peripheral numbness, denies any abdominal pain or fullness, denies any skin rash or itching, denies any jaundice, denies any melena or hematochezia denies any hemoptysis or hematemesis. Denies any started on new medication, Denies any night sweats, denies any peripheral lymphadenopathy or abdominal fullness, denies any recurrent fever. complaining of about 30 pound weight loss in the last 6 months and also complaining of right thyroid nodule, his lab work-up done by PMD confirmed hyperthyroidism and he is currently being evaluated by ENT, Dr Coffman.And endocrinology Mr Caes was last seen by on 03/12/2020. His hemoglobin at that time was 10.0, white count was 3.4 and platelets were 51,000. His platelet count was 81,000 on March 06, 2020. Mr. Case reports that he was given radioactive iodine on Wednesday prior to this visit for a thyroid scan . He continues with the B12 weekly. It is noted that peripheral smear findings from his CBC on March 11, 2020 report leukopenia with neutropenia macrocytic anemia thrombocytopenia nucleated red blood cells identified no blast or blast equivalent cells identified the above findings of pancytopenia are concerning for myeloid disorder so, specimen has been sent for flow cytometry .Which was done on March 11, 2020 and it shows no abnormality is tolerating the B12 well, His anemia work-up was inconclusive including Robson test were negative but positive for anti-D antibody, patient was given trial of high-dose steroids, without any improvement subsequently patient underwent bone marrow on April 11, 2020 which showed normocellular bone marrow no overt dyspoietic or megaloblastic changes seen no evidence of bone marrow infiltrative disorder iron stores increased, flow cytometry shows no aberrant myeloid or lymphoid population Patient was referred to [facility] for persistent pancytopenia with no obvious bone marrow abnormality and inconclusive initial work-up, patient was seen by on May 28, 2020 and her recommendations were CT scan of chest abdomen pelvis and she also repeated folate, copper and iron studies and his repeat B12 level there was around 390, for which she recommended weekly B12 supplement x4 followed by monthly, His repeat CBC done at [facility] on May 28, 2020 showed persistent pancytopenia with ANC of 1.2, hemoglobin 9.1 g MCV 101 platelets 85,000she was awaiting bone marrow slides from [facility] and also considering repeating Bone marrow biopsy and next generation sequencing with [facility] for evaluation of myeloid malignancies, as per patient he was also mentioned about possibility of aplastic anemia., Patient was advised to continue B12 supplement with a loading dose weekly x4 which she completed the last week of June 2020 then switch to once a month maintenance dose, patient underwent follow-up bone marrow evaluation at [facility] on July 16, 2020, result is pending Follow-up CT scan of chest abdomen pelvis done at [facility] on June 07, 2020 showed mass in the right lobe of thyroid size about 3 cm and 5 mm right upper lobe nodule follow-up in 1 year recommended otherwise liver, spleen appears normal and no central lymphadenopathy. As far as thyroid nodule is concerned, in recent past patient was evaluated by Dr. Coffman and was started on methimazole. Came for follow-up, denies any specific complaints, no fever chills, no nausea or vomiting, no diarrhea or constipation, no melena or hematochezia no hemoptysis hematemesis, no shortness of breath, tolerating Eliquis 2.5 mg daily and monthly B12 supplement. Medications: Advair Diskus 2 Puff(s) (of 250-50 mcg/dose) Aerosol Powder, Breath Activated Inhalation daily, Eliquis 1 Tablet (of 2.5 mg) Oral daily, Tamsulosin HCl 1 Capsule (of 0.4 mg) Oral daily Allergies: Vicodin Review of Systems: Review of Systems is not available for this patient. Vital Signs: Performed on Oct 23, 2020 15:32 Height - 72.00 in Weight - 171.4 lbs (HIGH) BSA - 2.00 sq.m BMI - 23.25 Temperature - 98.8 F Pulse - 91 /min Respiration - 18 /min BP - 89/55 mm(hg) (LOW) O2 Sat - 96 % Pain - 0 Fatigue - 6 Performance Status: 0 - Fully active, able to carry on all predisease activities without restrictions. (ECOG) Physical Examination: ENMT - No mouth sores, no thrush, no jaundice, Respiratory - Lungs are clear to auscultation, Cardiovascular - Regular rate and rhythm of heart, Abdomen - Soft, bowel sounds present, Extremities - Trace edema left leg. Lab/Imaging: Test performed on Oct 16, 2020 11:35 WBC 3.3 10^3/uL RBC 2.96 10^6/uL HGB 11.3 g/dL HCT 343 % MCV 115.9 fl MCH 38.2 pg MCHC 32.9 g/dL RDW 14.9 % Platelet Count 91 10^3/uL MPV 12.1 fl Neutrophils 1.00 10^3/uL Lymphocytes 1.9 10^3/uL Monocytes 0.4 10^3/uL Eosinophils 0.0 10^3/uL Basophils 0.0 10^3/uL Neutrophil % 30.2 % Lymphocyte % 56.5 % Monocyte % 11.8 % Eosinophil % 1.2 % Basophils % 0.3 % NRBC 0.0 /100 WBC NRBC % 0 % Test performed on Jul 16, 2020 10:14 Manual Lymphocytes 54.1 % Manual Monocytes 9.4 % Manual Eosinophils 0.9 % Manual Basophils 0.3 % Test performed on May 06, 2020 08:35 Leukocyte Reduced RBC [id number] AP RCLR XM COMPATIBLE Anti-D Positive / 4+ Blood Type AP Antibody Screen (Gel) NEGATIVE Impression: Pancytopenia including Macrocytic, hyperchromic anemia probably multifactorial including B12 deficiency, considering his age underlying myelodysplasia cannot be ruled out, lab work-up done in the PMDs office, on February 21, 2020 showed white blood count 3.2 hemoglobin 9.6 hematocrit 28.2 platelets 168,000 Iron 116, iron saturation 52, TIBC 222, ferritin 951, B12 286, SPEP no restricted protein seen TSH less than 0.06 , T4 2.7, Robson test direct and indirect negative but positive for anti-D antibodies, Was given high-dose steroids for 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 No evidence of bone marrow infiltrative disorder. Iron stores increased. No evidence of reticulin fibrosis. Flow cytometry was unremarkable. As per pathology FISH for MDS was negative Patient was referred to [facility] he was seen on May 28, [address] Alvarado and her recommendations were CT scan of chest abdomen pelvis, continue with B12 supplements weekly x4 followed by monthly as his lab work-up done there at [facility] showed B12 level was 390, hemoglobin was 9.1 g, ANC was 1.2 platelets 85,000, also tested for HIV, hepatitis serology, CMV PCR, parvovirus PCR all were negative. And she also recommended, if CT scan of abdomen shows cirrhosis, consider HFE mutation testing. And she may consider repeating bone marrow biopsy with NGS with myeloseq CT scan of chest abdomen pelvis was done at [facility] on June 07, 2020 showed no hepatosplenomegaly, no central lymphadenopathy but there was a persistent mass in the right thyroid for which he was evaluated by Dr. Coffman here locally, and was diagnosed with hypothyroidism for which she was started on methimazole Plan: Discussed with patient regarding his labs white blood count 3.3 hemoglobin 11.3 g compared to 10.9 previously hematocrit 34.3, platelets 91,000 ANC 1000 Clinically, patient doing well with no new signs symptoms, his follow-up labs shows his hemoglobin continue to improve on B12 supplement, still has persistent mild leukopenia but stable and thrombocytopenia, when compared with labs from September 2020 at that time his platelet count was 189,000 compared to 90,000 previously so that could be lab error as his baseline platelet count is around 90,000, will continue to monitor and patient was advised to increase his Eliquis dose to 2.5 mg p.o. twice a day from once a day for his history of recurrent lower extremity DVT. Patient will continue with monthly B12 supplement and then return to clinic in 3 months with CBC Signed By: Fransico Shankar M.D. <<Signature on File>>
== END 2020-10-23 15:12 | disposition home or self-care (01) ==
LOC: ONCMED 15:18
PROVIDERS: PCP Internal Medicine; Visit Provider Internal Medicine Hematology & Oncology
DX: D61.818 Other pancytopenia (principal); D50.9 Iron deficiency anemia, unspecified; E03.9 Hypothyroidism, unspecified; N40.0 Benign prostatic hyperplasia without lower urinary tract symptoms; Z86.718 Personal history of other venous thrombosis and embolism; Z79.02 Long term (current) use of antithrombotics/antiplatelets; Z79.899 Other long term (current) drug therapy
CPT/HCPCS: 99214

== ENCOUNTER → 2020-11-21 12:09 | Outpatient (BNVA) | payer MEDICARE, OTHER, SELFPAY | PROVIDERS: PCP Internal Medicine; Visit Provider Emergency Medicine | DX: D50.9 Iron deficiency anemia, unspecified (principal); E53.8 Deficiency of other specified B group vitamins | CPT/HCPCS: 85025 ==

== ENCOUNTER → 2020-12-23 09:34 | Outpatient (BNVA) | payer MEDICARE, OTHER, SELFPAY | PROVIDERS: PCP Internal Medicine; Visit Provider Nurse Practitioner Family | DX: D61.818 Other pancytopenia (principal) | CPT/HCPCS: 85025 ==

== ENCOUNTER 2021-01-21 12:04 | Outpatient (CLI) | payer MEDICARE, OTHER, SELFPAY ==
[2021-01-21] MEDS: cyanocobalamin 1,000 mcg/mL SDV 1000 MCG IM (12:30)
[2021-01-21 13:12] LABS: Basophils % 0.3 %; Eosinophils % 0.6 %; Hematocrit 33.2 % (42.0-52.0); Hemoglobin 11.3 g/dL (11.7-16.6); Lymphocytes # 1.8 10^3/uL (0.8-4.8); Lymphocytes % 56.2 %; Mean Corpuscular Hemoglobin 37.9 pg (28.0-34.0); Mean Corpuscular Volume 111.4 fl (80-94); Mean Platelet Volume 12.1 fL (7.4-10.4); Monocytes # 0.4 10^3/uL (0.2-0.9); Monocytes % 11.5 %; Neutrophils % 31.1 %; Nucleated Red Blood Cells % 0 %; Platelet Count 93 10^3/cmm (130-400); Red Blood Count 2.98 10^6/uL (4.1-5.3); Red Cell Distribution Width 14.3 % (12.1-15.1); White Blood Count 3.1 10^3/uL (4.0-10.0)
[2021-01-21 13:54] LABS: Neutrophils # 0.97 10^3/uL (1.8-7.7); Slide Review Slide Review Perform
--- NOTE | 2021-01-21 14:38 | ONC FU_ITS ---
Dr. Shankar follow up note Patient: Erich Case Unit #: [id number]: 1945 Dicatated By: Fransico Shankar M.D.Date of Visit:Jan 21, 2021 Onc Med Follow-up/Prog Note History of Present Illness: Mr. Case is a 75-year-old gentleman with history of right leg DVT diagnosed in 1997, as per patient he was treated with heparin for 5 days as inpatient followed by probably short course of Coumadin for few months. 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 Mr Case reports that he did fine until in 2016 when he felt left groin discomfort/pain and went to see his PMD. Eventually a left leg venous Doppler study was done which confirmed DVT from the left groin to left knee . He was started on Eliquis 5 mg twice a day for a few weeks and then dose was reduced to 2.5 mg p.o. twice daily, and he is on this dose currently. Mr Case reports he had a routine lab work-up done in February 2020 and he was informed that he had anemia. His iron studies were normal, but the B12 was on the low side of normal. He was started on oral B12 supplement by his PMD. Patient denies any history of alcohol use for the last 30 years, before that he used to consume significant amount of alcohol. Denies any history of stomach surgery denies any peripheral numbness, denies any abdominal pain or fullness, denies any skin rash or itching, denies any jaundice, denies any melena or hematochezia denies any hemoptysis or hematemesis. Denies any started on new medication, Denies any night sweats, denies any peripheral lymphadenopathy or abdominal fullness, denies any recurrent fever. complaining of about 30 pound weight loss in the last 6 months and also complaining of right thyroid nodule, his lab work-up done by PMD confirmed hyperthyroidism and he is currently being evaluated by ENT, Dr Coffman.And endocrinology Mr Case was last seen by on 03/12/2020. His hemoglobin at that time was 10.0, white count was 3.4 and platelets were 51,000. His platelet count was 81,000 on March 06, 2020. Mr. Case reports that he was given radioactive iodine on Wednesday prior to this visit for a thyroid scan . He continues with the B12 weekly. It is noted that peripheral smear findings from his CBC on March 11, 2020 report leukopenia with neutropenia macrocytic anemia thrombocytopenia nucleated red blood cells identified no blast or blast equivalent cells identified the above findings of pancytopenia are concerning for myeloid disorder so, specimen has been sent for flow cytometry .Which was done on March 11, 2020 and it shows no abnormality is tolerating the B12 well, His anemia work-up was inconclusive including Robson test were negative but positive for anti-D antibody, patient was given trial of high-dose steroids, without any improvement subsequently patient underwent bone marrow on April 11, 2020 which showed normocellular bone marrow no overt dyspoietic or megaloblastic changes seen no evidence of bone marrow infiltrative disorder iron stores increased, flow cytometry shows no aberrant myeloid or lymphoid population Patient was referred to [facility] for persistent pancytopenia with no obvious bone marrow abnormality and inconclusive initial work-up, patient was seen by on May 28, 2020 and her recommendations were CT scan of chest abdomen pelvis and she also repeated folate, copper and iron studies and his repeat B12 level there was around 390, for which she recommended weekly B12 supplement x4 followed by monthly, His repeat CBC done at [facility] on May 28, 2020 showed persistent pancytopenia with ANC of 1.2, hemoglobin 9.1 g MCV 101 platelets 85,000she was awaiting bone marrow slides from [facility] and also considering repeating Bone marrow biopsy and next generation sequencing with [facility] for evaluation of myeloid malignancies, as per patient he was also mentioned about possibility of aplastic anemia., Patient was advised to continue B12 supplement with a loading dose weekly x4 which she completed the last week of June 2020 then switch to once a month maintenance dose, patient underwent follow-up bone marrow evaluation at [facility] on July 16, 2020, result is pending Follow-up CT scan of chest abdomen pelvis done at [facility] on June 07, 2020 showed mass in the right lobe of thyroid size about 3 cm and 5 mm right upper lobe nodule follow-up in 1 year recommended otherwise liver, spleen appears normal and no central lymphadenopathy. As far as thyroid nodule is concerned, in recent past patient was evaluated by Dr. Coffman and was started on methimazole. Came for follow-up, denies any specific complaints, no fever chills, no nausea or vomiting, no diarrhea constipation, no hemoptysis hematemesis, no shortness of breath, no palpitation, tolerating monthly B12 well Medications: Advair Diskus 2 Puff(s) (of 250-50 mcg/dose) Aerosol Powder, Breath Activated Inhalation daily, Eliquis 1 Tablet (of 2.5 mg) Oral daily, Tamsulosin HCl 1 Capsule (of 0.4 mg) Oral daily Allergies: Vicodin Review of Systems: Review of Systems is not available for this patient. Vital Signs: Performed on Jan 21, 2021 14:34 Height - 72.00 in Weight - 176.0 lbs (HIGH) BSA - 2.02 sq.m BMI - 23.87 Temperature - 98.9 F (HIGH) Pulse - 64 /min Respiration - 18 /min BP - 92/60 mm(hg) O2 Sat - 97 % Pain - 0 Fatigue - 3 Performance Status: 0 - Fully active, able to carry on all predisease activities without restrictions. (ECOG) Physical Examination: ENMT - No mouth sores, no thrush, no jaundice, Respiratory - Lungs are clear to auscultation, Cardiovascular - Regular rate and rhythm of heart, Abdomen - Soft, bowel sounds present, Extremities - No visible edema. Lab/Imaging: Test performed on Oct 16, 2020 11:35 WBC 3.3 10^3/uL RBC 2.96 10^6/uL HGB 11.3 g/dL HCT 343 % MCV 115.9 fl MCH 38.2 pg MCHC 32.9 g/dL RDW 14.9 % Platelet Count 91 10^3/uL MPV 12.1 fl Neutrophils 1.00 10^3/uL Lymphocytes 1.9 10^3/uL Monocytes 0.4 10^3/uL Eosinophils 0.0 10^3/uL Basophils 0.0 10^3/uL Neutrophil % 30.2 % Lymphocyte % 56.5 % Monocyte % 11.8 % Eosinophil % 1.2 % Basophils % 0.3 % NRBC 0.0 /100 WBC NRBC % 0 % Impression: Pancytopenia including Macrocytic, hyperchromic anemia probably multifactorial including B12 deficiency, considering his age underlying myelodysplasia cannot be ruled out, lab work-up done in the PMDs office, on February 21, 2020 showed white blood count 3.2 hemoglobin 9.6 hematocrit 28.2 platelets 168,000 Iron 116, iron saturation 52, TIBC 222, ferritin 951, B12 286, SPEP no restricted protein seen TSH less than 0.06 , T4 2.7, Robson test direct and indirect negative but positive for anti-D antibodies, Was given high-dose steroids for 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 No evidence of bone marrow infiltrative disorder. Iron stores increased. No evidence of reticulin fibrosis. Flow cytometry was unremarkable. As per pathology FISH for MDS was negative Patient was referred to [facility] he was seen on May 28, [address] Alvarado and her recommendations were CT scan of chest abdomen pelvis, continue with B12 supplements weekly x4 followed by monthly as his lab work-up done there at [facility] showed B12 level was 390, hemoglobin was 9.1 g, ANC was 1.2 platelets 85,000, also tested for HIV, hepatitis serology, CMV PCR, parvovirus PCR all were negative. And she also recommended, if CT scan of abdomen shows cirrhosis, consider HFE mutation testing. And she may consider repeating bone marrow biopsy with NGS with myeloseq CT scan of chest abdomen pelvis was done at [facility] on June 07, 2020 showed no hepatosplenomegaly, no central lymphadenopathy but there was a persistent mass in the right thyroid for which he was evaluated by Dr. Coffman here locally, and was diagnosed with hypothyroidism for which she was started on methimazole Plan: Discussed with patient regarding his labs white blood count 3.1 hemoglobin 11.3 g compared to 11.3 previously platelets 93,000 compared to 91,000 previously Clinically, patient doing well with no new signs symptoms, his follow-up lab work-up shows stable cell counts, will continue with monthly B12 and then return to clinic in 3 months with CBC, patient was advised in case there is evidence of gross bleeding, he need to call us Signed By: Fransico Shankar M.D. <<Signature on File>>
== END 2021-01-21 12:05 | disposition home or self-care (01) ==
LOC: ONCMED 12:07
PROVIDERS: PCP Internal Medicine; Visit Provider Internal Medicine Hematology & Oncology
DX: D61.818 Other pancytopenia (principal); D51.9 Vitamin B12 deficiency anemia, unspecified; N40.0 Benign prostatic hyperplasia without lower urinary tract symptoms; E05.90 Thyrotoxicosis, unspecified without thyrotoxic crisis or storm; E04.1 Nontoxic single thyroid nodule; Z86.718 Personal history of other venous thrombosis and embolism; Z79.899 Other long term (current) drug therapy
CPT/HCPCS: 36415; 85025; 96372; 99214; J3420

== ENCOUNTER → 2021-02-25 09:06 | Outpatient (BNVA) | payer MEDICARE, OTHER, SELFPAY | PROVIDERS: PCP Internal Medicine; Visit Provider Nurse Practitioner Family | DX: D61.818 Other pancytopenia (principal) | CPT/HCPCS: 85025 ==

== ENCOUNTER → 2021-03-27 09:26 | Outpatient (BNVA) | payer MEDICARE, OTHER, SELFPAY | PROVIDERS: PCP Internal Medicine; Visit Provider Emergency Medicine | DX: D61.818 Other pancytopenia (principal); D64.9 Anemia, unspecified | CPT/HCPCS: 85025 ==

== ENCOUNTER 2021-04-21 12:46 | Outpatient (CLI) | payer MEDICARE, OTHER, SELFPAY ==
[2021-04-21 14:04] LABS: Basophils % 0.6 %; Eosinophils % 0.6 %; Hematocrit 34.9 % (42.0-52.0); Hemoglobin 11.7 g/dL (11.7-16.6); Lymphocytes # 1.9 10^3/uL (0.8-4.8); Lymphocytes % 54.9 %; Mean Corpuscular HGB Conc 33.5 g/dL (30.0-36.0); Mean Corpuscular Hemoglobin 37.4 pg (28.0-34.0); Mean Corpuscular Volume 111.5 fl (80-94); Mean Platelet Volume 11.2 fL (7.4-10.4); Monocytes # 0.3 10^3/uL (0.2-0.9); Monocytes % 9.5 %; Neutrophils # 1.13 10^3/uL (1.8-7.7); Neutrophils % 33.5 %; Nucleated Red Blood Cells % 0 %; Platelet Count 95 10^3/cmm (130-400); Red Blood Count 3.13 10^6/uL (4.1-5.3); Red Cell Distribution Width 14.4 % (12.1-15.1); White Blood Count 3.4 10^3/uL (4.0-10.0)
[2021-04-21] MEDS: cyanocobalamin 1,000 mcg/mL SDV 1000 MCG SUBCUT (14:05)
[2021-04-21 14:15] LABS: Ferritin 514 ng/mL (30-400); Iron 109 ug/dL (59-158); Percent Saturation 51.6 % (20-50); Total Iron Binding Capacity 211 mcg/dl; Unsaturated Iron Binding 102 ug/dL (112-347)
[2021-04-21 14:31] LABS: Vitamin B12 589 pg/mL (232-1245)
--- NOTE | 2021-04-23 18:11 | ONC FU_ITS ---
Dr. Shankar follow up note Patient: Erich Case Unit #: [id number]: 1945 Dicatated By: Fransico Shankar M.D.Date of Visit:Apr 21, 2021 Onc Med Follow-up/Prog Note History of Present Illness: Mr. Case is a 75-year-old gentleman with history of right leg DVT diagnosed in 1997, as per patient he was treated with heparin for 5 days as inpatient followed by probably short course of Coumadin for few months. 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 Mr Case reports that he did fine until in 2016 when he felt left groin discomfort/pain and went to see his PMD. Eventually a left leg venous Doppler study was done which confirmed DVT from the left groin to left knee . He was started on Eliquis 5 mg twice a day for a few weeks and then dose was reduced to 2.5 mg p.o. twice daily, and he is on this dose currently. Mr Case reports he had a routine lab work-up done in February 2020 and he was informed that he had anemia. His iron studies were normal, but the B12 was on the low side of normal. He was started on oral B12 supplement by his PMD. Patient denies any history of alcohol use for the last 30 years, before that he used to consume significant amount of alcohol. Denies any history of stomach surgery denies any peripheral numbness, denies any abdominal pain or fullness, denies any skin rash or itching, denies any jaundice, denies any melena or hematochezia denies any hemoptysis or hematemesis. Denies any started on new medication, Denies any night sweats, denies any peripheral lymphadenopathy or abdominal fullness, denies any recurrent fever. complaining of about 30 pound weight loss in the last 6 months and also complaining of right thyroid nodule, his lab work-up done by PMD confirmed hyperthyroidism and he is currently being evaluated by ENT, Dr Coffman.And endocrinology Mr Case was last seen by on 03/12/2020. His hemoglobin at that time was 10.0, white count was 3.4 and platelets were 51,000. His platelet count was 81,000 on March 06, 2020. Mr. Case reports that he was given radioactive iodine on Wednesday prior to this visit for a thyroid scan . He continues with the B12 weekly. It is noted that peripheral smear findings from his CBC on March 11, 2020 report leukopenia with neutropenia macrocytic anemia thrombocytopenia nucleated red blood cells identified no blast or blast equivalent cells identified the above findings of pancytopenia are concerning for myeloid disorder so, specimen has been sent for flow cytometry .Which was done on March 11, 2020 and it shows no abnormality is tolerating the B12 well, His anemia work-up was inconclusive including Robson test were negative but positive for anti-D antibody, patient was given trial of high-dose steroids, without any improvement subsequently patient underwent bone marrow on April 11, 2020 which showed normocellular bone marrow no overt dyspoietic or megaloblastic changes seen no evidence of bone marrow infiltrative disorder iron stores increased, flow cytometry shows no aberrant myeloid or lymphoid population Patient was referred to [facility] for persistent pancytopenia with no obvious bone marrow abnormality and inconclusive initial work-up, patient was seen by on May 28, 2020 and her recommendations were CT scan of chest abdomen pelvis and she also repeated folate, copper and iron studies and his repeat B12 level there was around 390, for which she recommended weekly B12 supplement x4 followed by monthly, His repeat CBC done at [facility] on May 28, 2020 showed persistent pancytopenia with ANC of 1.2, hemoglobin 9.1 g MCV 101 platelets 85,000she was awaiting bone marrow slides from [facility] and also considering repeating Bone marrow biopsy and next generation sequencing with [employer] for evaluation of myeloid malignancies, as per patient he was also mentioned about possibility of aplastic anemia., Patient was advised to continue B12 supplement with a loading dose weekly x4 which she completed the last week of June 2020 then switch to once a month maintenance dose, patient underwent follow-up bone marrow evaluation at [facility] on July 16, 2020, result is pending Follow-up CT scan of chest abdomen pelvis done at [facility] on June 07, 2020 showed mass in the right lobe of thyroid size about 3 cm and 5 mm right upper lobe nodule follow-up in 1 year recommended otherwise liver, spleen appears normal and no central lymphadenopathy. As far as thyroid nodule is concerned, in recent past patient was evaluated by Dr. Coffman and was started on methimazole. Came for follow-up, denies any specific complaints except episode dyspnea on exertion while hanging curtains, it was self-limiting, patient has history of COPD, on bronchodilators, still smoke about pack a day. But denies any shortness of breath or palpitation at rest, denies any melena or hematochezia, denies any hemoptysis hematemesis, denies any nosebleed denies any hemoptysis, denies any jaundice, tolerating monthly B12 supplement well otherwise Medications: Advair Diskus 2 Puff(s) (of 250-50 mcg/dose) Aerosol Powder, Breath Activated Inhalation daily, Eliquis 1 Tablet (of 2.5 mg) Oral daily, Tamsulosin HCl 1 Capsule (of 0.4 mg) Oral daily Allergies: Vicodin Review of Systems: Review of Systems is not available for this patient. Vital Signs: Performed on Apr 21, 2021 16:16 Height - 72.00 in Weight - 174.8 lbs (LOW) BSA - 2.01 sq.m BMI - 23.71 Temperature - 98.1 F (LOW) Pulse - 58 /min (LOW) Respiration - 16 /min BP - 111/62 mm(hg) O2 Sat - 93 % (LOW) Pain - 0 Fatigue - 4 Performance Status: 1 - No physically strenuous activity, but ambulatory and able to carry out light or sedentary work (e.g. office work, light house work). (ECOG) Physical Examination: ENMT - No mouth sores, no thrush, no jaundice, Respiratory - Poor air entry, mild wheezing, Cardiovascular - Regular rate and rhythm of heart, Abdomen - Soft, bowel sounds present, Extremities - No visible edema. Lab/Imaging: Most recent lab results are not available for this patient. 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 No evidence of bone marrow infiltrative disorder. Iron stores increased. No evidence of reticulin fibrosis. Flow cytometry was unremarkable. As per pathology FISH for MDS was negative Patient was referred to [facility] he was seen on May 28, [address] Alvarado and her recommendations were CT scan of chest abdomen pelvis, continue with B12 supplements weekly x4 followed by monthly as his lab work-up done there at [facility] showed B12 level was 390, hemoglobin was 9.1 g, ANC was 1.2 platelets 85,000, also tested for HIV, hepatitis serology, CMV PCR, parvovirus PCR all were negative. And she also recommended, if CT scan of abdomen shows cirrhosis, consider HFE mutation testing. And she may consider repeating bone marrow biopsy with NGS with myeloseq CT scan of chest abdomen pelvis was done at [facility] on June 07, 2020 showed no hepatosplenomegaly, no central lymphadenopathy but there was a persistent mass in the right thyroid for which he was evaluated by Dr. Coffman here locally, and was diagnosed with hypothyroidism for which she was started on methimazole Plan: Discussed with patient regarding his labs white blood count 3.4 hemoglobin 11.7 hematocrit 34.9 platelets 95,000 compared to white blood count 3100 and platelets 93,000 on January 21, 2021 Clinically, patient is doing well with no new signs symptom except episode of dyspnea on exertion while hanging curtains at home, patient has history of COPD and continues to smoke as per patient he has never seen pulmonology. We will suggest pulmonary consultation to optimize his COPD management. And patient said he also has history of pulmonary nodule, is a high risk for pulmonary cancer, so he need to follow with pulmonology. As far as pancytopenia is concerned, his hemoglobin is stable and now in normal range although on the low side of normal range. His white blood count is improving while on monthly B12 supplement and his mild/moderate thrombocytopenia is also stable, will continue monitor he will return to clinic in 3 months with CBC. Patient was advised to quit smoking and was offered any assistance he may need.. Signed By: Fransico Shankar M.D. <<Signature on File>>
== END 2021-04-21 12:47 | disposition home or self-care (01) ==
LOC: ONCMED 12:49
PROVIDERS: PCP Internal Medicine; Visit Provider Internal Medicine Hematology & Oncology
DX: D61.818 Other pancytopenia (principal); D53.9 Nutritional anemia, unspecified; R79.89 Other specified abnormal findings of blood chemistry; N40.0 Benign prostatic hyperplasia without lower urinary tract symptoms; E05.90 Thyrotoxicosis, unspecified without thyrotoxic crisis or storm; E04.1 Nontoxic single thyroid nodule; D69.6 Thrombocytopenia, unspecified; J44.9 Chronic obstructive pulmonary disease, unspecified; F17.210 Nicotine dependence, cigarettes, uncomplicated; Z86.718 Personal history of other venous thrombosis and embolism; Z79.01 Long term (current) use of anticoagulants; Z79.899 Other long term (current) drug therapy
CPT/HCPCS: 36415; 82607; 82728; 83540; 83550; 85025; 96372; 99215; J3420

== ENCOUNTER 2021-07-24 12:28 | Oncology outpatient (recurring) (ONCR) | payer MEDICARE, OTHER, SELFPAY ==
[2021-07-24 12:01] LABS: Hematocrit 34.6 % (42.0-52.0); Hemoglobin 12.1 g/dL (11.7-16.6); Mean Corpuscular Hemoglobin 37.7 pg (28.0-34.0); Mean Corpuscular Volume 107.8 fl (80-94); Mean Platelet Volume 11.8 fL (7.4-10.4); Platelet Count 101 10^3/cmm (130-400); Red Blood Count 3.21 10^6/uL (4.1-5.3); Red Cell Distribution Width 13.6 % (12.1-15.1); White Blood Count 3.3 10^3/uL (4.0-10.0)
[2021-07-24 12:54] LABS: Absolute Segmented Neutrophil 1.3 10/cmm (1.6-7.1); Segmented Neutrophils 38 %; Slide Review Slide Review Perform; Total Cells Counted 100 (0-100)
[2021-07-24 12:55] LABS: Absolute Neutrophil 1.3 10^3/cmm (1.4-6.5); Eosinophils 0 %; Giant Platelets Trace; Lymphocytes 38 %; Lymphocytes Absolute 1.8 10^3/cmm (1.2-3.4); Monocytes Absolute 0.3 10^3/cmm (0.1-0.6); Platelet Estimate Decreased (Normal)
== END 2021-08-14 23:59 | disposition home or self-care (01) ==
PROVIDERS: PCP Internal Medicine; Referring Provider Internal Medicine; Visit Provider Nurse Practitioner Family
DX: D61.818 Other pancytopenia (principal); D64.9 Anemia, unspecified; E03.9 Hypothyroidism, unspecified; Z79.899 Other long term (current) drug therapy
CPT/HCPCS: 36415; 85007; 85025; 99214

== ENCOUNTER 2021-10-24 09:19 | Oncology outpatient (recurring) (ONCR) | payer MEDICARE, OTHER, SELFPAY ==
[2021-10-24 09:47] LABS: Basophils % 0.5 %; Eosinophils % 0.5 %; Hemoglobin 12.9 g/dL (11.7-16.6); Lymphocytes % 55.6 %; Mean Corpuscular HGB Conc 33.9 g/dL (30.0-36.0); Mean Corpuscular Hemoglobin 37.8 pg (28.0-34.0); Mean Corpuscular Volume 111.4 fl (80-94); Monocytes # 0.4 10^3/uL (0.2-0.9); Monocytes % 10.9 %; Neutrophils # 1.16 10^3/uL (1.8-7.7); Neutrophils % 31.7 %; Nucleated Red Blood Cells % 0 %; Platelet Count 100 10^3/cmm (130-400); Red Blood Count 3.41 10^6/uL (4.1-5.3); Red Cell Distribution Width 14.1 % (12.1-15.1); White Blood Count 3.7 10^3/uL (4.0-10.0)
[2021-10-24 10:22] LABS: Ferritin 572 ng/mL (30-400); Iron 224 ug/dL (59-158)
[2021-10-24 10:37] LABS: Vitamin B12 527 pg/mL (232-1245)
[2021-10-24 10:43] LABS: Unsaturated Iron Binding < 17 ug/dL (112-347)
== END 2021-11-14 23:59 | disposition home or self-care (01) ==
LOC: ONCMED 09:20
PROVIDERS: Nurse Practitioner; PCP Internal Medicine; Referring Provider Internal Medicine; Visit Provider Nurse Practitioner Family
DX: D61.818 Other pancytopenia (principal); D51.9 Vitamin B12 deficiency anemia, unspecified; D58.8 Other specified hereditary hemolytic anemias; Z79.52 Long term (current) use of systemic steroids; E05.90 Thyrotoxicosis, unspecified without thyrotoxic crisis or storm; E04.1 Nontoxic single thyroid nodule; Z86.718 Personal history of other venous thrombosis and embolism; Z79.01 Long term (current) use of anticoagulants; E03.9 Hypothyroidism, unspecified; Z79.899 Other long term (current) drug therapy
CPT/HCPCS: 36415; 82607; 82728; 83540; 83550; 85025; 99214

== ENCOUNTER → 2022-06-02 10:20 | Outpatient (BNVA) | payer MEDICARE, OTHER, SELFPAY | PROVIDERS: PCP Internal Medicine; Visit Provider Nurse Practitioner Family | DX: S79.911A Unspecified injury of right hip, initial encounter (principal); X58.XXXA Exposure to other specified factors, initial encounter | CPT/HCPCS: 73502 ==